=== PATIENT | male | born 1945 | race Caucasian/White ===

== ENCOUNTER → 2017-08-03 17:54 | Outpatient (CLI) | payer MEDICARE, SELFPAY ==
--- NOTE | 2017-08-03 18:03 | DI.MRI.S_ITS ---
PROCEDURE: MR FOOT RT WO/W CON INDICATIONS: RIGHT FOOT SWELLING TECHNIQUE: Noncontrast sagittal T1 spin echo and T2 fast spin echo with fat saturation, long-axis T1 spin echo and T2 fast spin echo with fat saturation; short-axis T1 spin echo, proton density fast spin echo, and T2 fast spin echo with fat saturation through the forefoot. Post-contrast short axis, long axis, and sagittal T1 spin echo with fat saturation through the forefoot. COMPARISON: None. FINDINGS: Image quality: Excellent. Bones and joints: No suspicious osseous enhancement. There is a bipartite lateral hallux sesamoid, with mild marrow edema for example image 29 series 6. There is a first MTP joint effusion. First and second tarsometatarsal degeneration. There is also mild first metatarsophalangeal joint degeneration. No intraosseous lesions. Soft tissues: Along the course of the extensor hallucis longus tendon there is a large diffuse area of T2 hyperintensity, with discrete margins and internal heterogeneous signal intensity with scattered innumerable 1-2 mm nodular T2 hypointense and T1 isointense foci. On postcontrast enhanced pulse sequences there is primarily peripheral enhancement. Exact measurements are difficult due to the irregular configuration however this measures approximately 10 cm long the course of the tendon and 2.2 x 1.4 cm in cross-sectional dimension as seen on short axis pulse sequences of the foot. This likely corresponds to the fiducial marker placed on the dorsum of the foot IMPRESSION: Large area of heterogeneous signal change and peripheral enhancement along the course of the extensor hallucis longus tendon as detailed above. 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 Please correlate clinically. Other probably less likely etiologies in the differential include complex ganglion cyst or unusual infection. Myxoid soft tissue sarcomas cannot entirely be excluded. Recommend clinical correlation and management. Bipartite lateral hallux sesamoid with marrow edema. Technically, this could represent acute sesamoid fracture versus sesamoiditis of unknown etiology. Recommend clinical correlation and exam findings. Degenerative changes as above. Dictated by: Oleg Polanco M.D. on 08/04/2017 at 9:17 Approved by: Oleg Polanco M.D. on 08/04/2017 at 9:51
== END ==
PROVIDERS: Family Provider Student in an Organized Health Care Education/Training Program; PCP Student in an Organized Health Care Education/Training Program; Visit Provider Podiatrist
DX: R22.41 Localized swelling, mass and lump, right lower limb (principal)
CPT/HCPCS: 73720; A9579

== ENCOUNTER → 2017-12-22 15:16 | Outpatient (CLI) | payer MEDICARE, SELFPAY ==
--- NOTE | 2017-12-22 | DI.CT.S_ITS ---
PROCEDURE: CT UE RT WO CON INDICATIONS: OTHER SPECIFIC ARTHROPATHIES NEC RIGHT SHOULDER TECHNIQUE: Noncontrast 1-1.5 mm thick sections acquired from the acromioclavicular joint to the inferior scapula, with coronal and sagittal reformatting. COMPARISON: None. FINDINGS: Image quality: Excellent. Bones: No fracture or focal osseous destruction. There is glenohumeral degenerative spurring and sclerosis. Severe AC joint degeneration is present. There is high riding appearance of the humeral head in keeping with chronic rotator cuff pathology. This is supported by severe atrophy of the supraspinatus muscle. There is also atrophy, and dystrophic calcification of the infraspinatus muscle. Possible small Hill-Sachs fracture. Visualized right lung unremarkable the. IMPRESSION: Mild to moderate glenohumeral degenerative joint disease. Severe AC joint degeneration. High riding appearance of the humeral head with atrophy of the supraspinatus and infraspinatus muscles in keeping with chronic rotator cuff tear. Please see shoulder MRI dated 05/10/17. Dictated by: Oleg Polanco M.D. on 12/22/2017 at 16:59 Approved by: Oleg Polanco M.D. on 12/22/2017 at 17:05
== END ==
PROVIDERS: PCP Student in an Organized Health Care Education/Training Program; Visit Provider Orthopaedic Surgery
DX: M19.011 Primary osteoarthritis, right shoulder (principal); M75.101 Unspecified rotator cuff tear or rupture of right shoulder, not specified as traumatic
CPT/HCPCS: 73200

== ENCOUNTER → 2018-01-10 13:07 | Outpatient (CLI) | payer MEDICARE, SELFPAY ==
[2018-01-10 13:46] LABS: Add Manual Diff / Slide Review NO; Basophils Percent Auto 0.6 % (0-2); Eosinophils Percent Auto 1.6 % (2-4); Hematocrit 41.4 % (41-53); Hemoglobin 13.6 g/dL (13.5-17.5); Lymphocytes Percent Auto 11.6 % (25-40); Mean Corpuscular HGB Conc 32.7 % (30-36); Mean Corpuscular Hemoglobin 31.2 PG (26-34); Mean Corpuscular Volume 95.4 fL (80-100); Monocytes Percent Auto 8.7 % (3-14); Neutrophils Absolute Auto 8800 /uL (3000-5900); Neutrophils Percent Auto 77.5 % (50-75); Platelet Count 137 X10^3/uL (150-400); Red Blood Cell Count 4.34 X10^6/uL (4.5-5.9); Red Cell Distribution Width 13.9 % (11.6-14.8); White Blood Cell Count 11.3 X10^3/uL (4.5-11.0)
[2018-01-10 14:02] LABS: INR 1.3 (0.9-1.3); Prothrombin Time 14.3 SECONDS (10.1-12.7)
[2018-01-10 14:05] LABS: PTT Partial Thromboplastin Tim 35 SECONDS (26.4-36.2)
[2018-01-10 14:15] LABS: Carbon Dioxide 29 mmol/L (22-32); Chloride 99 mmol/L (98-107); HEMOLYSIS < 15 (0-50); Potassium 3.9 mmol/L (3.4-5.1); Sodium 139 mmol/L (137-145)
== END ==
PROVIDERS: PCP Student in an Organized Health Care Education/Training Program; Visit Provider Orthopaedic Surgery
DX: R73.9 Hyperglycemia, unspecified (principal); Z01.818 Encounter for other preprocedural examination; Z51.81 Encounter for therapeutic drug level monitoring
CPT/HCPCS: 36415; 80051; 85025; 85610; 85730

== ENCOUNTER 2018-01-24 10:02 | Inpatient (IN) | payer MEDICARE, SELFPAY ==
[2018-01-17 12:42] VITALS: BMI 34.1
[2018-01-24] VITALS (11 sets, daily range): BP systolic 115–140; BP diastolic 62–88; PULSE 65–88; RESP 16–20; TEMP 36.2–36.7; O2SAT 93–96; BMI 33.7
--- NOTE | 2018-01-24 | DI.RAD.S_ITS ---
PROCEDURE: XR SHOULDER RT MIN 2V INDICATIONS: Patient is status post reverse total shoulder arthroplasty TECHNIQUE: 2 views of the shoulder were acquired. COMPARISON: [facility], , SHOULDER MINIMUM 2 VIEW LEFT, 03/16/2012, 15:18. FINDINGS: Bones: Patient is status post right shoulder reverse arthroplasty. Alignment of right shoulder is anatomic. No fractures or dislocations. Moderate right acromioclavicular joint osteophyte is is seen. No suspicious bony lesions. Visualized ribs appear intact. Soft tissues: No suspicious soft tissue calcifications. IMPRESSION: Post right shoulder reverse arthroplasty changes with anatomic right shoulder alignment. Dictated by: Timo Lowe M.D. on 01/24/2018 at 16:44 Approved by: Timo Lowe M.D. on 01/24/2018 at 16:45
[2018-01-24] MEDS: ACETAMINOPHEN 325 MG TABLET 975 MG PO ×3 (10:46→20:34)
[2018-01-24] MEDS: PREGABALIN 75 MG CAPSULE PO (10:47)
[2018-01-24] MEDS: LACTATED RINGERS 1,000 ML 42 ML IV ×2 (11:39→14:16)
[2018-01-24] MEDS: VANCOMYCIN 1,000 MG/200 ML FROZ.PIGGY 200 MG IV (11:51)
[2018-01-24] MEDS: MIDAZOLAM 2 MG/2 ML VIAL IV (12:01)
[2018-01-24] MEDS: fentaNYL 100 MCG/2 ML INJ 50 MCG IV (12:01)
--- NOTE | 2018-01-24 12:01 | PM.PREOP ---
Pre-operative Note Interval Note Pre-op Check: Yes History & Physical Reviewed by Physician Changes: No
[2018-01-24] MEDS: LIDOCAINE 1% W/EPI INJ 10 ML INJ (13:05)
--- NOTE | 2018-01-24 13:13 | SUR.OPER ---
Beach chair with Ashleyn/Jana shoulder positioner. Lower body on padded OR bed. Head in foam padded head cradle, secured with straps. Non-operative arm secured <90 degrees abduction. Pillow under knees. Safety belt at thigh. Cloth tape over blanket over lower legs, gel pad under heels.
--- NOTE | 2018-01-24 14:52 | P.OP_ITS ---
Operative Date/Time/Diagnoses Date of procedure: 01/24/18 Time of procedure: 12:43 Pre-op diagnosis: Right shoulder cuff tear arthropathy Post-op diagnosis: same Procedure & Clinicians Procedure: Right reversed total shoulder arthroplasty Same procedure as scheduled: Yes Indications: Right cuff tear arthropathy Surgeon: Guy Dodge Metal Work Duct Installer: Susanna Mayfield Anesthesia Type: General and Peripheral nerve block Operative Notes Findings: Findings of cuff tear arthropathy. Complete tear of the supraspinatus and infraspinatus. Almost complete tear of the majority of the subscapularis. High riding humeral head. Arthritic changes at the glenohumeral joint. Closure Type: primary Implants & Drains: Tornier 7b stem Standard base plate Eccentric glenosphere 6mm poly Low offset tray Applied: drain(s) and implant(s) Estimated Blood Loss (mL): 100 Blood products transfused: none Complications: none Condition: stable Disposition: PACU Plan for aftercare: Patient will follow our postoperative protocol for reverse total shoulder arthroplasty.
--- NOTE | 2018-01-24 15:20 | PT.IPTN ---
Current Diagnoses Other specific arthropathies, not elsewhere classified, right shoulder (01/24/18) Other specific arthropathies, not elsewhere classified, left shoulder (01/24/18) Surgery Performed Operation Date: 01/24/18 11:45 Actual Procedures p Total Shoulder Arthroplasty-Reverse(Right) - Guy Dodge MD Physical Therapy Treatment Note M3 PT-IP Subjective Start: 01/24/18 15:34 Freq: NEEDED Status: Active Protocol: Document 01/24/18 15:20 RS (Rec: 01/24/18 15:36 RS [id number]) Subjective Physical Therapy Visit Type Type Administrative Note Notes Received PT order, performed chart review, attempted to see patient, but pt was not yet in his assigned room. Will try again later this afternoon or tomorrow.
[2018-01-24] MEDS: LACTATED RINGERS 1,000 ML 125 ML IV (18:35)
[2018-01-24] MEDS: DOCUSATE 100 MG CAPSULE PO (20:34)
[2018-01-24] MEDS: ROSUVASTATIN 10 MG TABLET 5 MG PO (20:34)
[2018-01-24] MEDS: METFORMIN XR 500 MG TABLET PO (20:36)
[2018-01-24] MEDS: TAMSULOSIN 0.4 MG CAPSULE 0.8 MG PO (20:37)
[2018-01-24] MEDS: CARVEDILOL 3.125 MG TABLET PO (20:37)
[2018-01-25] VITALS: BP 114/62; PULSE 70; RESP 16; TEMP 36.6; O2SAT 96
[2018-01-25] MEDS: VANCOMYCIN 1,000 MG/200 ML FROZ.PIGGY 200 MG IV (00:04)
[2018-01-25 04:00] VITALS: BP 122/77; PULSE 70; RESP 16; TEMP 36.6; O2SAT 96
[2018-01-25] MEDS: OXYCODONE IR 5 MG TABLET PO ×3 (04:06→12:06)
[2018-01-25 05:21] LABS: Hemoglobin 10.6 g/dL (13.5-17.5); Mean Corpuscular HGB Conc 33.2 % (30-36); Mean Corpuscular Hemoglobin 31.8 PG (26-34); Mean Corpuscular Volume 95.6 fL (80-100); Platelet Count 125 X10^3/uL (150-400); Red Blood Cell Count 3.35 X10^6/uL (4.5-5.9); Red Cell Distribution Width 13.6 % (11.6-14.8); White Blood Cell Count 7.7 X10^3/uL (4.5-11.0)
[2018-01-25 07:00] VITALS: BP 124/59; PULSE 59; RESP 18; TEMP 37.1; O2SAT 96
[2018-01-25] MEDS: ACETAMINOPHEN 325 MG TABLET 975 MG PO ×2 (08:21→14:31)
[2018-01-25] MEDS: BENAZEPRIL 5 MG TABLET 10 MG PO (08:22)
[2018-01-25] MEDS: CHLORTHALIDONE 25 MG TABLET PO (08:22)
[2018-01-25] MEDS: METFORMIN XR 500 MG TABLET PO ×2 (08:22→14:29)
[2018-01-25 08:25] VITALS: BP 146/62; PULSE 91
[2018-01-25] MEDS: CARVEDILOL 3.125 MG TABLET PO (08:25)
--- NOTE | 2018-01-25 10:06 | P.DS_ITS ---
History of Present Illness Date Patient Seen: 01/25/18 Time Patient Seen: 10:06 Chief complaint: reconstruct shoulder joint 37542 Narrative: Right cuff tear arthropathy Discharge Providers Date of admission: 01/24/18 10:02 Primary care physician: Chava Rodriguez MD Consults: 01/24/18 10:34 Consult to Respiratory Therapy Evaluate & Treat Comment: Physician Instructions: Evaluate and treat 01/24/18 14:40 Consult to Discharge Planning Routine Comment: Consult to Physical Therapy Evaluate & Treat Comment: Physician Instructions: Evaluate and Treat Consult to Respiratory Therapy Evaluate & Treat Comment: patient status post reverse total shoulder arthro Physician Instructions: Evaluate and treat 01/25/18 09:53 Consult to Occupational Therapy Evaluate & Treat Comment: Physician Instructions: Evaluate and treat Discharge provider: Yoanna Reaves PA-C Discharge Date: 01/25/18 Summary Discharge Diagnosis: s/p right reverse total shoulder arthroplasty Hospital Course: Guy was admitted for right reverse total shoulder arthroplasty with Dr. Dodge, and he consented to procedure. Hospital course was unremarkable. On postop day 1. Patient was feeling well and ready to go home. His pain was well controlled. He had worked with OT and PT prior to discharge. Patient is wearing sling. He has no difficulty eating or voiding. Patient will restart Eliquis tomorrow. Hemovac drain pulled prior to discharge. Exam Vital Signs (past 8 hours): - 01/25/18 04:00 01/25/18 07:00 01/25/18 08:25 Temperature 97.8 F 98.8 F Pulse Rate 70 59 L 91 H Respiratory Rate 16 18 Blood Pressure 122/77 124/59 L 146/62 H Pulse Oximetry 96 96 Oxygen Delivery Method Room Air Oxygen Flow Rate 0 Narrative Exam Narrative: Patient is sitting up in bed in no acute distress. He is alert and oriented x3. Dressing on right shoulder CDI. Hemovac drain placed. Rehabilitation Services Director strength strong and equal. Sensation intact light touch throughout bilateral lower extremities. Patient's pain is well controlled with oxycodone. Denies any muscle spasms. Patient has a recliner at home that he plans a sleep in. Objective Labs Result Diagrams: 01/25/18 04:43 Labs: Laboratory Results - last 24 hr 01/24/18 01/25/18 16:10 04:43 WBC 7.7 RBC 3.35 L Hgb 10.6 L Hct 32.0 L MCV 95.6 MCH 31.8 MCHC 33.2 RDW 13.6 Plt Count 125 L Nasal Screen MRSA (PCR) Negative for mrsa Discharge Plan Discharge Plan Patient Disposition: Home Discharge comment: DC home this afternoon Discharge Med Rec/Prescriptions Prescriptions: New oxycodone 5 mg Tablet 5 mg PO Q4HR Qty: 60 RF: 0 Continue benazepril 10 mg Tablet 10 mg PO QAM Qty: 0 RF: 0 metformin [Glucophage XR] 500 MG tablet extended release 24 hr 500 mg PO TID Qty: 0 RF: 0 chlorthalidone 25 mg Tablet 25 mg PO DAILY RF: 0 acetaminophen 500 mg Tablet 1,000 mg PO Q6H PRN (Reason: pain) RF: 0 carvedilol 3.125 mg Tablet 3.125 mg PO BID RF: 0 rosuvastatin 5 mg Tablet 5 mg PO SEEINSTR RF: 0 torsemide 10 mg Tablet 10 mg PO SEEINSTR RF: 0 potassium chloride 10 mEq Tablet Extended Release 30 meq PO SEEINSTR RF: 0 rosuvastatin 5 mg tablet See Label Instructions .ROUTE .COMPLEX RF: 0 apixaban [Eliquis] 5 mg Tablet 5 mg PO BID Qty: 0 RF: 0 tamsulosin 0.4 mg capsule 0.8 mg PO BEDTIME RF: 0 Follow up/Referrals: Guy Dodge MD [Physician] - (Please see PA 10-14 days after surgery) Provider Discharge Instructions Activity: Reverse TSA protocol Cold/Heat Therapy: as needed Skin/Wound/Dressing Care Report to your healthcare provider any signs of infection, such as:: chills, fever and increased pain Dressing: Leave in place until appointment Visit Report/Discharge Packet Instructions: DI for Shoulder Replacement Discharge Data Primary Care Provider: Chava Rodriguez Attending Provider: Guy Dodge Admit Date/Time: 01/24/18 10:02
--- NOTE | 2018-01-25 11:50 | OT.IP.EVAL ---
Current Diagnoses Other specific arthropathies, not elsewhere classified, right shoulder (01/24/18) Other specific arthropathies, not elsewhere classified, left shoulder (01/24/18) Surgery Performed Operation Date: 01/24/18 11:45 Actual Procedures p Total Shoulder Arthroplasty-Reverse(Right) - Guy Dodge MD Past Medical History (Last Reviewed 01/25/18 @ 08:16 by Omid Barron) Afib (Acute) CHF (congestive heart failure) (Acute) Diabetes (Acute) Easy bruisability (Acute) Edema (Acute) Enlarged prostate (Acute) HTN (hypertension) (Acute) VISH on CPAP (Acute) Pneumonia (Acute ~2007) Surgical History (Last Reviewed 01/25/18 @ 08:16 by Omid Barron) H/O vasectomy (Acute ~1986) History of left-sided carotid endarterectomy (Acute ~2006) History of nasal surgery (Acute ~1984) Hx of arthroscopy of right knee (Acute) Hx of cholecystectomy (Acute ~2002) Hx of colonoscopy (Acute) Hx of eye surgery (Acute) Hx of hernia repair (Acute) Hx of tonsillectomy (Acute) S/P foot surgery, right (Acute 12/23/17) Occupational Therapy Inpatient Evaluation/Re-Eval M1 PT/OT-IP Prior Functional Status Start: 01/24/18 15:34 Freq: NEEDED Status: Active Protocol: Document 01/25/18 11:50 PJM (Rec: 01/25/18 15:10 PJM [id number]) Medical Review Prior Functional Status Medical History Reviewed Yes Diet/Fluid Consistency Regular Communication No deficits noted. Mobility and Gait Previously independent with all mobilities using no AD. Activities of Daily Living and IADL's Pt independent with all self care, but limited by B shoulder and B knee pain. Prior Functional Level (Other details) Supportive can provide 24 hr assist at d/c. Social History Household Members spouse Living Arrangements House Number of Floors (Floors) Two Floors Number of Stairs To Enter/Railing? Pt has options for entrance: 2 steps no rail to enter through garage OR 8-9 steps B rails through front door. Inside home, 13 steps L rail to access top floor. Home Environment High Toilet Walk in Shower Home Equipment Straight Cane Hand Held Shower Fleet Service Manager Grab Bars Near Toilet Grab Bars In Shower Employment Status Retired Additional Social History Comment Pt lives with Edwin who is available for 14/09 assist as needed. 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 Owns electric recliner, has been sleeping in that recently . will obtain shower seat and long shoe horn for pt. M2 OT-IP Current Condition Start: 01/25/18 14:44 Freq: Status: Active Protocol: Document 01/25/18 11:50 PJM (Rec: 01/25/18 15:10 PJM [id number]) Occupational Therapy Current Condition Current Condition Evaluation Date 01/25/18 Treatment Diagnosis decreased self care s/p R reverse total shoulder Post Operative Precautions Shoulder Precautions Sling No Abduction Other Precautions AROM exercises to elbow, forearm, wrist and fingers okay. No pendulums for 2 weeks. No active abduction. Sling on all times except showering, dressing x 6 weeks. Weight Bearing Status Weight Bearing Status Non-Weight Bearing Allowed Weight Bearing Amount (enter % NWB R shoulder or #) (%) M3 OT- IP Subjective and Pain Start: 01/25/18 14:44 Freq: Status: Active Protocol: Document 01/25/18 11:50 PJM (Rec: 01/25/18 15:10 PJM [id number]) OT- Subjective Occupational Therapy Visit Type Type Initial Evaluation Visit Start Time 10:49 Visit Stop Time 11:50 Notes Pt's her for education this session. Pt c/o feeling light headed near end of session and BP found to be 82/ 50 in sitting. Reclined pt with BP improving to 89/47 and fully reclined BP 100/54 after 15 minutes. RN aware and in room to check on pt. Pt reports he has been hypotensive after previous surgeries. Occupational Therapy Visit Comments Patient/Caregiver Goals to go home today and eventually get L shoulder replaced and B knees replaced OT Pain Assessment Pain When Pain Assessed At Rest Pain Present Pain Present Pain Reported Location Right Shoulder Intensity 4 Scale Used Numeric (1 - 10) Description Aching Acute Pain Behaviors Facial Grimacing Guarding Management Techniques Distraction Re-positioning Timing of Activity with Medications M4 OT- IP ADL's Start: 01/25/18 14:44 Freq: Status: Active Protocol: Document 01/25/18 11:50 PJM (Rec: 01/25/18 15:10 PJM [id number]) OT TKS-[id number]-[id number] General Evaluation Self-Feeding Ability Independent Areas Needing Assistance Cutting Food Opening Containers Comments OT Self-Feeding Comments Pt needs set up of meal tray due to unilateral function. Pt feeding self with non dominant R hand. OT ADL-Grooming General Evaluation Grooming Ability Standby Assistance Areas Needing Assistance Retrieving/Set-up of Grooming Items Comments OT Grooming Comments Educated pt he can use R hand as light assist for stabilizing objects with sling in place. OT ADL-Oral Care General Eval Oral Care Ability Standby Assistance Areas of Assistance Retrieving/Set-Up of Items OT ADL-Dressing General Eval Upper Body Dressing Ability Maximum Assistance Lower Body Dressing Ability Moderate Assistance Areas Needing Assistance Managing Buttons Button-Up Shirt/Blouse Pants/Shorts Socks Shoes Assistive Devices Dressing Assistive Devices Long Handled Shoe Horn Fleet Service Manager Comments OT Dressing Comments Educated pt / re: safe technique for donning and doffing sling and front button shirt. Pt has limited AROM in L shoulder too and needs to put B arms into sleeves and then flip shirt over head. able to assist pt appropriately with sling and shirt. Provided education re: unilateral lower body dressing techniques and to assist PRN at home. OT ADL-Toileting General Evaluation Toileting Ability Standby Assistance Comments OT Toileting Comments Pt SBA to use urinal with assist for clothing management up/down over R hip. Pt states he can wipe with L hand after BM, and has been doing this at home prior to surgery. OT ADL-Bathing Bathing Type Bathing Type Shower General Evaluation Bathing Ability Moderate Assistance Areas Needing Assistance Retrieving/Setting Up Items Wash/Dry Upper Body Wash/Dry Back Wash/Dry Lower Extremities Devices Bathing Equipment Hand Held Shower Sprayer Shower Chair without Arms Comments OT Bathing Comments plans to get shower chair for pt. Provided education re : safe showering technique and verbalizes understanding of pt's need for assist due to current R should precautions. M5 OT- IP IADL's Start: 01/25/18 14:44 Freq: Status: Active Protocol: Document 01/25/18 11:50 PJM (Rec: 01/25/18 15:10 PJM [email or web address]) OT-Instrumental Activities of Daily Living Deficits IADL Deficits Identified Deficits Home Safety Awareness Awareness of Need for Assistance at Home Good Awareness Ability to Problem Solve Emergency Able to Problem Solve Situations Medication Management Medication Management No Deficits Identified Meal Preparation Meal Preparation Caregiver Provides Assist Meal Preparation Comments to assist PRN Faa Certified Powerplant Mechanic Faa Certified Powerplant Mechanic Caregiver Provides Assist Faa Certified Powerplant Mechanic Comments to assist PRN Driving Driving Caregiver Provides Assist Driving Comments to assist PRN M6 OT- IP Functional Cognition Start: 01/25/18 14:44 Freq: Status: Active Protocol: Document 01/25/18 11:50 PJM (Rec: 01/25/18 15:10 PJM [id number]) Cognitive Factors Limiting Selfcare Function Cognitive Ability Level of Alertness Drowsy Patient Orientation Name Age Birthday Month Date Year Day of Week Place Situation Attention Span Ability Capable of Focused Attention Capable of Sustained Attention Ability to Follow Commands Able to Follow One Step Commands Memory Description No Deficits Noted Safety Awareness Decreased Ability to Apply Precautions Problem Solving Ability Needs Assist to Identify Solutions Cognitive Comments Cognitive Assessment Comments Pt mildly drowsy from pain meds but participating appropriately with ADL training. OT- Vision and Hearing OT- Hearing Assessment OT- Hearing Assessment WFL OT- Vision Assessment Visual Acuity Glasses All The Time Vision Assessment Comments Pt denies any recent vision changes. M7 OT- IP Mobility and Balance Start: 01/25/18 14:44 Freq: Status: Active Protocol: Document 01/25/18 11:50 PJM (Rec: 01/25/18 15:10 PJM [email or web address]) OT-Transfer Assessment Sit to and From Stand Sit to and from Stand Standby Assistance Transfers Transfer Ability Standby Assistance Technique Transfer Destination Car Chair Transfer Technique Stand Step Pivot Devices Transfer Assistive Devices Gait Belt Straight Cane Orthotic/Prosthetic Devices or Brace: Yes Comments Mobility Comments Pt has RUE sling in place OT- Gait Assessment Comments Gait Ability Comments see P.T. notes OT- Balance Assessment Sitting Balance and Reactions Static Sitting Balance Ability Good Dynamic Sitting Balance Ability Fair Standing Balance and Reactions Static Standing Balance Ability Good Dynamic Standing Balance Ability Fair Comments Other Balance Tests/Deviations/Treatment see P.T. notes : M8 OT- IP Objective Assessments Start: 01/25/18 14:44 Freq: Status: Active Protocol: Document 01/25/18 11:50 PJM (Rec: 01/25/18 15:10 PJM [id number]) OT Gross Range of Motion Upper Extremity Range of Motion Assessment Right Impaired ROM Impairments RUE: AROM WFL in elbow, forearm, wrist, fingers with sling off. Pt educated re: AROM exercises for these joints when sling off. Shoulder NT as per post op protocol. LUE: shoulder IR/ER limited to about 50% by pain and stiffness. Distal AROM WFL. OT Strength Upper Extremity Strength Assessment Right Impaired Hand Eligibility Specialist Strength Hand Dominance Right Comments Strength Comments RUE strength NT due to recent surgery except steam shovel engineer 3+/5 limited by shoudler pain and edema in fingers. OT- Coordination Assessment Upper Extremity Finger to Nose Test Right UE Impaired Finger Tapping Test Right UE Impaired Comments Coordination Comments Pt able to use R hand as as light assist within sling with verbal cues. OT-Muscle Tone Assessment Muscle Tone WNL Yes OT Sensation Assessment Comments Summary Comments BUE WNL by pt report. Edema Edema Present Edema Comments Min + edema in R fingers. Pt educated re: fist pumping to decrease edema. M9 OT- IP Assessment and Plan Start: 01/25/18 14:44 Freq: Status: Active Protocol: Document 01/25/18 11:50 PJM (Rec: 01/25/18 15:10 PJM [email or web address]) OT Summary Assessment and Plan Potential Rehabilitation Potential Good Analytic Complexity at Evaluation Low Summary OT Impairments Pain Balance Coordination Dressing Toileting Bathing Toilet Transfers Shower Transfers Progress Towards Goals Goals Met Assessment Summary Low complexity OT assessment completed with emphasis on self care skills within R reverse total shoulder precautions. Provided education to pt/ re: precautions, AROM exercises for R elbow/forearm/wrist/ fingers as per MD orders, upper and lower body dressing techniques including donning and doffing sling, safe bathing techniques, toileting, and car transfers. Pt/ verbalize and demonstrate understanding of all education. Pt's activity tolerance limited near end of session by orthostasis with RN aware and in room to check on pt. All OT education completed today and pt plans to d/c home later today with 24 hr assist from supportive if BP stabilizes. No further OT services needed. Frequency of Treatment Frequency Of Treatment Discharge Discharge Recommendations OT Discharge Recommendations Home with 24/7 Assist Home Equipment Needs to obtain long shoe horn for pt
[2018-01-25 12:10] VITALS: BP 100/54; PULSE 60; RESP 18; O2SAT 98
--- NOTE | 2018-01-25 13:56 | PT.IIE ---
Current Diagnoses Other specific arthropathies, not elsewhere classified, right shoulder (01/24/18) Other specific arthropathies, not elsewhere classified, left shoulder (01/24/18) Surgery Performed Operation Date: 01/24/18 11:45 Actual Procedures p Total Shoulder Arthroplasty-Reverse(Right) - Guy Dodge MD Surgical History (Last Reviewed 01/25/18 @ 08:16 by Omid Barron) H/O vasectomy (Acute ~1986) History of left-sided carotid endarterectomy (Acute ~2006) History of nasal surgery (Acute ~1984) Hx of arthroscopy of right knee (Acute) Hx of cholecystectomy (Acute ~2002) Hx of colonoscopy (Acute) Hx of eye surgery (Acute) Hx of hernia repair (Acute) Hx of tonsillectomy (Acute) S/P foot surgery, right (Acute 12/23/17) Medical History (Last Reviewed 01/25/18 @ 08:16 by Omid Barron) Afib (Acute) CHF (congestive heart failure) (Acute) Diabetes (Acute) Easy bruisability (Acute) Edema (Acute) Enlarged prostate (Acute) HTN (hypertension) (Acute) VISH on CPAP (Acute) Pneumonia (Acute ~2007) Physical Therapy Inpatient Evaluation/Re-Eval M1 PT/OT-IP Prior Functional Status Start: 01/24/18 15:34 Freq: NEEDED Status: Active Protocol: Document 01/25/18 09:46 (Rec: 01/25/18 12:17 [email or web address]) Medical Review Prior Functional Status Medical History Reviewed Yes Communication No deficits noted. Mobility and Gait Previously independent with all mobilities using no AD. Social History Household Members spouse Living Arrangements House Number of Floors (Floors) Two Floors Number of Stairs To Enter/Railing? Pt has options for entrance: 2 steps no rail to enter through garage OR 8-9 steps B rails through front door. Inside home, 13 steps L rail to access top floor. Home Environment High Toilet Walk in Shower Home Equipment Grab Bars Near Toilet Grab Bars In Shower Employment Status Retired Additional Social History Comment Pt lives with Edwin who is avaliable for 24/7 assist as needed. 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 Owns electric recliner, has been sleeping in that recently . M2 PT-IP Current Condition Start: 01/24/18 15:34 Freq: NEEDED Status: Active Protocol: Document 01/25/18 09:46 (Rec: 01/25/18 12:17 [email or web address]) Physical Therapy Current Condition Current Condition Evaluation Date 01/25/18 Treatment Diagnosis R reverse total shoulder; difficutly walking Onset Date 01/24/18 Precautions Shoulder Precautions Sling PROM Internal Rotation to Body No External Rotation Brace soft sling Other Precautions No exension with axial load. No end range IR with adduction Weight Bearing Status Weight Bearing Status Non-Weight Bearing Allowed Weight Bearing Amount (enter % NWB R shoulder or #) (%) M3 PT-IP Subjective Start: 01/24/18 15:34 Freq: NEEDED Status: Active Protocol: Document 01/25/18 09:46 (Rec: 01/25/18 12:17 [email or web address]) Subjective Physical Therapy Visit Type Type Initial Evaluation Visit Start Time 09:46 Visit Stop Time 10:50 Total Visit Minutes 64 Number of LARD RENDERER Visits 0 Physical Therapy Visit Comments Patient Comments Pt agreeable to mobilize with PT. Therapy Pain Assessment Pain When Pain Assessed During Mobility Pain Present Pain Present Pain Reported Location Right Shoulder Scale Used Not rated. States pain is low Pain Management Techniques Modification of Treatment Re-positioning Timing of Activity with Medications M4 PT-IP Mobility and Gait Start: 01/24/18 15:34 Freq: NEEDED Status: Active Protocol: Document 01/25/18 09:46 (Rec: 01/25/18 12:17 [email or web address]) PT-Bed Mobility Assessment Supine to Sit Supine to Sit Standby Assistance Head of Bed Elevated Scooting Scooting to Edge of Bed Standby Assistance Scooting Up and Down in Bed Standby Assistance PT-Transfer Assessment Sit to and From Stand Sit to and from Stand Standby Assistance Equipment Transfer Assistive Device None Gait Belt Straight Cane Orthotic/Prosthetic Devices or Brace: Yes Transfers Transfer Destination Chair Transfer Technique Ambulates between surfaces Comments Mobility Comments Resting/supine HOB elevated VSS WNL. Supine > sit completed with HOB elevated SBA. Sit <> stand using no AD is SBA. Pt denies symptoms of dizziness or nausea and agreeable to mobilize. Gait Assessment Gait Gait Assistance Required: Standby Assistance Distance (Feet) 300 Able to Maintain Weight Bearing Status No During Gait Assistive Devices Assistive Device None Gait Belt Straight Cane Orthotic/Prosthetic Devices or Brace: Yes Gait Deviations General Gait Pattern Decreased Stride Length Decreased Feet Clearance Factors Limiting Gait Function Factors Limiting Gait Function Decreased Activity Tolerance Decreased Strength Limited Range of Motion Pain Poor Balance Comments Gait Comments Pt ambulates 300 ft. with no AD to/from stairs SBA. Gait is notable for Antalgic gait over the R side and decreased stride length and foot clearance. Ambulation 50 ft. with spc is SBA and pt gait mechanics improve significantly, however pt needing frequent cues for appropriate 3 pt gait pattern. Stair Climbing Assessment Evaluation Level of Assist On Stairs Contact Guard Assistance Devices Stair Climbing Assistive Devices Left Railing Technique/Endurance Stair Climbing Direction Ascend and Descend Stair Climbing Technique Step Over Step Number of Steps Climbed 12 Query Text: Stair Climbing Set # Repetitions (reps) 1 Comments Stair Climbing Comments Pt up/down 12 steps using L rail is CGA. Pt uses side step approach to descend. No LOB noted and pt denies nausea and dizziness during entire session. VSS WNL seated post session. PT-Balance Assessment Sitting Balance and Reactions Static Sitting Balance Ability Good Dynamic Sitting Balance Ability Good Standing Balance and Reactions Static Standing Balance Ability Good Dynamic Standing Balance Ability Fair Device Used spc M5 PT-IP Objective Assessments Start: 01/24/18 15:34 Freq: NEEDED Status: Active Protocol: Document 01/25/18 09:46 (Rec: 01/25/18 12:17 [email or web address]) Orientation Orientation/Cognition Level of Alertness Alert Orientation Name Age Birthday Month Date Year Day of Week Place Situation Language Function Ability No Deficits Noted Safety Awareness Decreased Safety Awareness Gross Range of Motion Upper Extremity ROM Assessment Right Impaired Lower Extremity ROM Assessment Within Functional Limits Strength Lower Extremity Strength Assessment Within Functional Limits Other Assessments Other Other Assessments Pitting edema noted in BLE. R grade 2+; L 1+ Girth measurements: Proximal to lateral maleolus: L 27.5cm; R 31.5cm Mid calf: L 31.5; 42 cm M6 PT-IP Treatment Start: 01/24/18 15:34 Freq: NEEDED Status: Active Protocol: Document 01/25/18 09:46 (Rec: 01/25/18 12:17 [email or web address]) Physical Therapy Treatment Exercises Exercises Ankle Pumps Education Education Provided Precautions Safety M7 PT-IP Assessment and Plan Start: 01/24/18 15:34 Freq: NEEDED Status: Active Protocol: Document 01/25/18 09:46 (Rec: 01/25/18 12:17 [email or web address]) PT Summary Assessment and Plan Potential Rehabilitation Potential Good Status of Condition at Evaluation Stable Summary Impairments Pain ROM Strength Balance Bed Mobility Transfers Gait Activity Tolerance Assessment Summary Pt s/p R reverse total shoulder with difficulty walking. Pt ambulates community distances SBA and completed up/down 12 steps L rail CGA. Caregiver training needs to be completed, then when pt is medically ready, recommend d/c to home with assist. Also recommended pt use spc for improved stability during walking; pt agreed. Goals Bed Mobility Goal Independent Transfer Goal Independent Cane Gait Goal Independent Cane Gait Distance 300 Other Goals 300 ft ambulation independent. Safely demonstrate up/down 13 steps with caregiver demonstrating safe CGA. Days to Meet Goals 2 Frequency of Treatment Frequency Of Treatment Twice a Day Treatment Plan Physical Therapy Treatment Plan Bed Mobility Training Transfer Training Gait Training Therapeutic Exercise Balance Retraining Post Op Education Discharge Planning Hot or Cold Pack Neuromuscular Re-ed Coordination Retraining Manual Therapy Other Recommendations and Next Treatment Ambulation, stair climbing, Focus caregiver training. Recommendations To Nursing Amount of Assist Needed Standby Assistance Discharge Recommendations PT Discharge Recommendations Home with Assistance Equipment Needed for Home Before Pt was recommended to purchase Discharge shower chair; pt and caregiver agreed.
--- NOTE | 2018-01-25 14:55 | PT.IPTN ---
Addendum entered and electronically signed by Rosario Roth PT 01/31/18 07:26: I certify I directly supervised and guided this session. R Marilou Roth, DPAnna Original Note: Current Diagnoses Other specific arthropathies, not elsewhere classified, right shoulder (01/24/18) Other specific arthropathies, not elsewhere classified, left shoulder (01/24/18) Surgery Performed Operation Date: 01/24/18 11:45 Actual Procedures p Total Shoulder Arthroplasty-Reverse(Right) - Guy Dodge MD Physical Therapy Treatment Note M2 PT-IP Current Condition Start: 01/24/18 15:34 Freq: NEEDED Status: Active Protocol: Document 01/25/18 09:46 (Rec: 01/25/18 12:17 [email or web address]) Physical Therapy Current Condition Current Condition Evaluation Date 01/25/18 Treatment Diagnosis R reverse total shoulder; difficutly walking Onset Date 01/24/18 Precautions Shoulder Precautions Sling PROM Internal Rotation to Body No External Rotation Brace soft sling Other Precautions No exension with axial load. No end range IR with adduction Weight Bearing Status Weight Bearing Status Non-Weight Bearing Allowed Weight Bearing Amount (enter % NWB R shoulder or #) (%) M3 PT-IP Subjective Start: 01/24/18 15:34 Freq: NEEDED Status: Active Protocol: Document 01/25/18 14:55 (Rec: 01/25/18 15:39 [email or web address]) Subjective Physical Therapy Visit Type Type Treatment Note Visit Start Time 14:55 Visit Stop Time 15:20 Total Visit Minutes 25 Number of FUR FINISHER SEAMSTRESS Visits 0 Physical Therapy Visit Comments Patient Comments Pt agreeable to mobilize with PT. present and agreeable to caregiver training. Patient Goals d/c home with Therapy Pain Assessment Pain When Pain Assessed During Mobility Pain Present Pain Present Pain Reported Location Right Shoulder Scale Used 2-3/10 Pain Management Techniques Modification of Treatment Re-positioning Timing of Activity with Medications M4 PT-IP Mobility and Gait Start: 01/24/18 15:34 Freq: NEEDED Status: Active Protocol: Document 01/25/18 14:55 (Rec: 01/25/18 15:39 [email or web address]) PT-Bed Mobility Assessment Scooting Scooting to Edge of Bed Standby Assistance PT-Transfer Assessment Sit to and From Stand Sit to and from Stand Standby Assistance Equipment Transfer Assistive Device Gait Belt Straight Cane Orthotic/Prosthetic Devices or Brace: Yes Transfers Transfer Destination Chair Transfer Technique Ambulates between surfaces Comments Mobility Comments Sit <> stand with spc is SBA. Pt moves easily, not relying on UE assist to stand. Gait Assessment Gait Gait Assistance Required: Standby Assistance Distance (Feet) 300 Able to Maintain Weight Bearing Status Yes During Gait Assistive Devices Assistive Device Gait Belt Straight Cane Orthotic/Prosthetic Devices or Brace: Yes Gait Deviations General Gait Pattern Antalgic Factors Limiting Gait Function Factors Limiting Gait Function Decreased Activity Tolerance Decreased Strength Limited Range of Motion Pain Poor Balance Poor Safety Awareness Comments Gait Comments Pt ambulates 300 ft. to/from stairs with spc; min cues for appropriate 3 pt gait pattern. Stair Climbing Assessment Evaluation Level of Assist On Stairs Contact Guard Assistance Devices Stair Climbing Assistive Devices Left Railing Technique/Endurance Stair Climbing Direction Ascend and Descend Stair Climbing Technique Step to Step Number of Steps Climbed 12 Query Text: Stair Climbing Set # Repetitions (reps) 1 Comments Stair Climbing Comments Pt up/down stairs CGA provided by (PT standby for safety). and pt demonstrate safety with min cues. PT-Balance Assessment Sitting Balance and Reactions Static Sitting Balance Ability Good Dynamic Sitting Balance Ability Good Standing Balance and Reactions Static Standing Balance Ability Good Dynamic Standing Balance Ability Fair Device Used spc M5 PT-IP Objective Assessments Start: 01/24/18 15:34 Freq: NEEDED Status: Active Protocol: Document 01/25/18 09:46 (Rec: 01/25/18 12:17 [email or web address]) Orientation Orientation/Cognition Level of Alertness Alert Orientation Name Age Birthday Month Date Year Day of Week Place Situation Language Function Ability No Deficits Noted Safety Awareness Decreased Safety Awareness Gross Range of Motion Upper Extremity ROM Assessment Right Impaired Lower Extremity ROM Assessment Within Functional Limits Strength Lower Extremity Strength Assessment Within Functional Limits Other Assessments Other Other Assessments Pitting edema noted in BLE. R grade 2+; L 1+ Girth measurements: Proximal to lateral maleolus: L 27.5cm; R 31.5cm Mid calf: L 31.5; 42 cm M6 PT-IP Treatment Start: 01/24/18 15:34 Freq: NEEDED Status: Active Protocol: Document 01/25/18 14:55 (Rec: 01/25/18 15:41 [email or web address]) Physical Therapy Treatment Other Treatments Other Treatment Performed Caregiver training included gait belt donning/doffing, appropriate guarding during ambulation and stairs. Pt and caregiver able to safely demonstrate all of the above with min cues and stated feeling comfortable with performance. M7 PT-IP Assessment and Plan Start: 01/24/18 15:34 Freq: NEEDED Status: Active Protocol: Document 01/25/18 14:55 (Rec: 01/25/18 15:39 [email or web address]) PT Summary Assessment and Plan Potential Rehabilitation Potential Good Summary Impairments Pain ROM Strength Balance Bed Mobility Transfers Gait Activity Tolerance Progress Towards Goals Progressing Toward Goals Assessment Summary Caregiver training completed. Pt and caregiver demonstrated safety with all topics including safety up/down 12 steps L rail, caregiver providing CGA. Recommend d/c to home with assist when pt is medically ready. Goals Bed Mobility Goal Independent Transfer Goal Independent Cane Gait Goal Independent Cane Gait Distance 300 Days to Meet Goals 2 Frequency of Treatment Frequency Of Treatment Twice a Day Treatment Plan Physical Therapy Treatment Plan Bed Mobility Training Transfer Training Gait Training Therapeutic Exercise Balance Retraining Post Op Education Discharge Planning Hot or Cold Pack Neuromuscular Re-ed Coordination Retraining Manual Therapy Recommendations To Nursing Amount of Assist Needed Standby Assistance Discharge Recommendations PT Discharge Recommendations Home with Assistance
== END 2018-01-25 15:54 | disposition home or self-care (01) | DRG 483 ==
LOC: AC 10:25 → ICU 12:55
PROVIDERS: Admitting Provider Orthopaedic Surgery; PCP Student in an Organized Health Care Education/Training Program; Visit Provider Orthopaedic Surgery
PROC: 0RQJ0ZZ Repair Right Shoulder Joint, Open Approach (ICD-10-PCS; CPT 23472; principal; 2018-01-24 11:45)
DX: M75.121 Complete rotator cuff tear or rupture of right shoulder, not specified as traumatic (principal); I48.1 Persistent atrial fibrillation; I50.42 Chronic combined systolic (congestive) and diastolic (congestive) heart failure; I42.8 Other cardiomyopathies; M19.011 Primary osteoarthritis, right shoulder; M25.711 Osteophyte, right shoulder; I25.10 Atherosclerotic heart disease of native coronary artery without angina pectoris; Z79.84 Long term (current) use of oral hypoglycemic drugs; E11.9 Type 2 diabetes mellitus without complications; G47.33 Obstructive sleep apnea (adult) (pediatric); E78.5 Hyperlipidemia, unspecified
CPT/HCPCS: 36415; 64450; 73030; 82962; 85027; 87797; 97116; 97161; 97165; 97530; 97533; C1776; J0330; J1100; J2250; J2405; J2704; J3010; J3370

== ENCOUNTER → 2018-08-08 15:24 | Outpatient (CLI) | payer MEDICARE, SELFPAY ==
[2018-06-22 15:24] VITALS: BMI 33.7
[2018-08-08 16:12] LABS: Add Manual Diff / Slide Review NO; Basophils Absolute Auto 100 /uL (0-100); Basophils Percent Auto 0.9 % (0-2); Eosinophils Absolute Auto 200 /uL (0-450); Eosinophils Percent Auto 2.2 % (2-4); Hematocrit 39.2 % (41-53); Hemoglobin 13.3 g/dL (13.5-17.5); Lymphocytes Absolute Auto 1500 /uL (1100-4500); Lymphocytes Percent Auto 17.3 % (25-40); Mean Corpuscular HGB Conc 33.9 % (30-36); Mean Corpuscular Hemoglobin 32.9 PG (26-34); Mean Corpuscular Volume 97.2 fL (80-100); Monocytes Absolute Auto 1000 /uL (0-900); Monocytes Percent Auto 11.7 % (3-14); Neutrophils Absolute Auto 5800 /uL (1500-7000); Neutrophils Percent Auto 67.9 % (50-75); Platelet Count 218 X10^3/uL (150-400); Red Blood Cell Count 4.03 X10^6/uL (4.5-5.9); White Blood Cell Count 8.5 X10^3/uL (4.5-11.0)
[2018-08-08 16:15] LABS: Hemoglobin A1C% w Est Avg Glu 5.7 % (4.0-6.0)
[2018-08-08 17:02] LABS: Carbon Dioxide 30 mmol/L (22-32); Chloride 102 mmol/L (98-107); HEMOLYSIS < 15 (0-50); Potassium 4.3 mmol/L (3.4-5.1); Sodium 141 mmol/L (137-145)
== END ==
PROVIDERS: Family Provider Student in an Organized Health Care Education/Training Program; PCP Student in an Organized Health Care Education/Training Program; Visit Provider Orthopaedic Surgery
DX: R73.09 Other abnormal glucose (principal); Z01.812 Encounter for preprocedural laboratory examination; Z01.818 Encounter for other preprocedural examination
CPT/HCPCS: 36415; 80051; 83036; 85025

== ENCOUNTER → 2018-09-02 14:47 | Outpatient (CLI) | payer MEDICARE, SELFPAY ==
[2018-06-22 15:24] VITALS: BMI 33.7
== END ==
PROVIDERS: Family Provider Student in an Organized Health Care Education/Training Program; PCP Student in an Organized Health Care Education/Training Program; Visit Provider Orthopaedic Surgery
DX: Z01.818 Encounter for other preprocedural examination (principal); R73.09 Other abnormal glucose
CPT/HCPCS: 93005

== ENCOUNTER → 2018-09-14 13:13 | Outpatient (CLI) | payer MEDICARE, SELFPAY ==
[2018-06-22 15:24] VITALS: BMI 33.7
--- NOTE | 2018-09-14 | DI.MRI.S_ITS ---
PROCEDURE: MR PELIS WO/W CON INDICATIONS: Malignant neoplasm of prostate TECHNIQUE: Coronal HASTE, axial T1 FSE with fat saturation, 3-plane nonbreath-hold T2 FSE. After the administration of contrast, dynamic axial, delayed axial and coronal VIBE or 2-D FLASH with fat saturation through the pelvis. Optional diffusion weighted imaging and ADC may be performed. COMPARISON: None. FINDINGS: Image quality: There is magnetic susceptibly artifact from gas distention of the rectum. Prostate: Gland size is 5.3 x 4.1 x 4.1 cm; ellipsoid gland volume is 46 mL. There is heterogeneous enlargement of the transition zone compatible with BPH. There is T1 hyperintensity within the left peripheral zone posteriorly consistent with blood products from recent biopsy. Lesion size(s): Lesion 1: 1.0 x 0.9 x 1.0 cm. Lesion 2: 1.3 x 1.0 cm in transverse dimension. The lesion is indistinct in the craniocaudal dimension. Lesion location(s) (sector): Lesion 1: Right posterior transition zone in the mid to apical prostate. Lesion 2: Left anterior transition zone in the mid gland. Lesion description: Lesion 1: Oval with indistinct margins. Lesion 2: Oval indistinct margins. T2 weighted imaging (T2WI) morphology score: Lesion 1: 4 Lesion 2: 4 Diffusion weighted imaging (DWI) morphology score: Lesion 1: 3 Lesion 2: 3 Dynamic contrast enhancement (DCE): Lesion 1: Absent. Lesion 2: Present. Lesion PI-RADS score: Lesion 1: PI-RADS 4 Lesion 2: PI-RADS 4 Genitourinary system: Bladder wall is mildly thickened with trabeculation suggestive of mild chronic bladder outlet obstruction. Distal ureters are non distended. Bowel and peritoneum: No pathologic free pelvic fluid. Inferior colon and small bowel loops are normal in caliber. There is colonic diverticulosis without acute diverticulitis. Nodes and vessels: No pelvic or inguinal adenopathy by size criteria. Iliac vessels are normal in caliber. Soft tissues: No inguinal hernias. Bones: Marrow demonstrates normal overall signal, without suspicious lesions to suggest metastases. IMPRESSION: 1. Small bilateral lesions demonstrated in the transition zone of the prostate at high suspicion for clinically significant prostate cancer. PI-RADS: 4 2. No evidence of pelvic lymphadenopathy or adjacent extraprostatic invasion. 3. Mild bladder wall thickening and trabeculation compatible with sequela of chronic bladder outlet obstruction. Dictated by: David Baker M.D. on 09/14/2018 at 15:47 Approved by: David Baker M.D. on 09/14/2018 at 16:07
== END ==
PROVIDERS: Family Provider Student in an Organized Health Care Education/Training Program; PCP Student in an Organized Health Care Education/Training Program; Visit Provider Specialist
DX: C61 Malignant neoplasm of prostate (principal)
CPT/HCPCS: 72197; A9579

== ENCOUNTER 2018-10-05 06:16 | Inpatient (IN) | payer MEDICARE, SELFPAY ==
[2018-06-22 15:24] VITALS: BMI 33.7
[2018-09-21 12:58] VITALS: BMI 33.9
[2018-10-05] VITALS (17 sets, daily range): BP systolic 123–174; BP diastolic 65–93; PULSE 57–89; RESP 11–20; TEMP 36.1–37.4; O2SAT 95–98; BMI 32.8
--- NOTE | 2018-10-05 06:00 | DI.RAD.S_ITS ---
PROCEDURE: XR KNEE RT 1TO2V INDICATIONS: post op right TKA TECHNIQUE: 3 view(s) of the knee acquired. COMPARISON: [facility], CR, KNEE 3V LEFT, 04/01/2011, 14:33. FINDINGS: Bones: Patient is status post knee joint arthroplasty. Hardware components are in expected positions. Visualized bony structures are intact. Soft tissues: Overlying postoperative changes are noted. IMPRESSION: Status post right total knee arthroplasty without acute hardware complication. Dictated by: Jace Bo M.D. on 10/05/2018 at 10:21 Approved by: Jace Bo M.D. on 10/05/2018 at 10:21
[2018-10-05] MEDS: PREGABALIN 75 MG CAPSULE PO (07:05)
[2018-10-05] MEDS: ACETAMINOPHEN 325 MG TABLET 975 MG PO ×4 (07:05→20:27)
[2018-10-05] MEDS: CELECOXIB 200 MG CAPSULE PO (07:05)
--- NOTE | 2018-10-05 07:25 | PM.PREOP ---
Pre-operative Note Interval Note History & Physical reviewed/Exam performed by Physician: Yes Changes to H&P: No
--- NOTE | 2018-10-05 07:28 | P.OP_ITS ---
Operative Date/Time/Diagnoses Date of procedure: 10/05/18 Time of procedure: 09:42 Pre-op diagnosis: Right knee osteoarthritis Post-op diagnosis: same Procedure & Clinicians Procedure: Right total knee arthroplasty Same procedure as scheduled: Yes Indications: The patient presents today for total knee arthroplasty after failure of conservative treatment. The nature of the procedure including the risks and benefits, alternatives, postoperative course and expected outcome were discussed and all questions answered. Consent was obtained. Operative site confirmed and marked. Surgeon: David Shore Assistant Center Director: Sawyer Sosa Operative Notes Prosthetic devices, grafts, tissues, transplants, or devices: [employer] [place] BCS: 8 femoral component, 6 tibial component, 10 mm BCS polyethylene tray and 35 mm round patella Procedure in detail: The patient was taken to the operative suite and placed under spinal anesthesia and an abductor nerve block. The patient was given prophylactic antibiotics prior to surgery. The patient was also given tranexamic acid, 1 g, just prior to surgery for postoperative hemostasis. The lateral knee was prepped and the joint injected with 20 mL of 1% Lidocaine with epinephrine. The knee was then prepped and draped in usual sterile fashion. The leg was exsanguinated with an Esmarch dressing and the tourniquet raised to 250 torr. A 15 cm anterior incision was made. Next a medial trivector arthrotomy was made. The extensor mechanism was marked to ensure accurate repair. Initial exposing dissection was carried out medially and laterally. The knee was then extended and the patellar thickness was measured and a cut made removing approximately 9 mm of bone. The patella was then sized and drilled. Some excess lateral bone was excised and the patellofemoral ligament released. The knee was then flexed and the intramedullary femoral guide maury placed. The distal femoral cut was made in 6 ? of valgus at the + 0 position. The femoral size was measured and the appropriate cutting block was then placed and the anterior, posterior and chamfer cuts made. The intramedullary tibial guide was placed. The guide was set to remove approximately 10 mm from the less affected lateral side. The proximal tibial cut was then made with an oscillating saw. All meniscus and bony debris was then removed. Flexion extension gaps were checked. No specific balancing was required other than routine removal of osteophytes. There were for a pretty extensive osteophytes along the medial tibia. The soft tissues were then injected with a combination of 20 mL of half percent Marcaine with epinephrine and 20 mL of Exparel. The trial components were then placed. The knee went into full extension and flexion beyond 120?. There was excellent medial- lateral balance throughout motion. Patellar tracking was excellent. The trial components were removed and the knee was cleansed with Pulsavac irrigation and dried. The final components were cemented in with high viscosity vacuum mixed bone cement with antibiotics. The knee was held in extension and the patellar clamp until the cement had adequately cured. The knee was irrigated and inspected for any further debris. The knee was then irrigated with dilute Betadine solution. The extensor mechanism was closed with 5 interrupted #1 Vicryl sutures in 90 degrees of flexion. The joint was then injected with a combination of 1 g of tranexamic acid and 20 mL of quarter percent Marcaine with epinephrine. The subcutaneous tissue was closed with 2-0 Vicryl. The skin was closed with sharon and surgical adhesive. An Aquacell dressing and Bernardino wrap were then applied. The patient tolerated the procedure well and was returned to recovery room in good condition. Plan for aftercare: [facility] protocol for total knee arthroplasty.
--- NOTE | 2018-10-05 07:28 | SUR.PREOP ---
INR order cancelled per Dr. Avila.
[2018-10-05] MEDS: LACTATED RINGERS 1,000 ML 42 ML IV ×2 (07:29→08:55)
[2018-10-05] MEDS: fentaNYL 100 MCG/2 ML INJ 50 MCG IV (07:42)
[2018-10-05] MEDS: MIDAZOLAM 2 MG/2 ML VIAL IV (07:43)
[2018-10-05] MEDS: CEFAZOLIN 2 GM/100 ML FROZ.PIGGY IV ×3 (07:53→23:51)
--- NOTE | 2018-10-05 07:53 | SUR.PREOP ---
Block start time [0742] . Monitoring initiated and maintained throughout procedure. Oxygen and medications given per anesthesiologist instructions. Patient remained stable throughout procedure, no adverse reactions noted. Block end time [0748].
--- NOTE | 2018-10-05 07:54 | SUR.PREOP ---
Pt's spouse noted a red area on the back of pt's lt arm on the way to the OR. Unsure of origin.
[2018-10-05] MEDS: LIDOCAINE 1% W/EPI INJ 20 ML INJ (08:10)
[2018-10-05] MEDS: TRANEXAMIC ACID 1,000 MG VIAL 1000 MG INJ (08:20)
--- NOTE | 2018-10-05 08:32 | SUR.OPER ---
Supine on padded OR bed. Pillow under head, arms secured on padded armboards <90 degree abduction. Safety belt across torso. Non-operative leg secured with tape over blanket over lower leg. Operative leg secured in DeMayo/Vikash positioner. Foam padded brace at thigh of operative leg.
[2018-10-05] MEDS: BUPIVACAINE 0.25% W/ EPI 30 ML VIAL 60 ML INJ (08:46)
[2018-10-05] MEDS: BUPIVACAINE LIPOSOME 266 MG/20 ML VIAL INJ (08:46)
[2018-10-05] MEDS: BUPIVACAINE 0.25% W/ EPI (PF) 20 ML, TRANEXAMIC ACID 1,000 MG, SODIUM CHLORIDE 0.9% 10 ML INJ (08:48)
[2018-10-05] MEDS: SODIUM CHLORIDE IRRIG SOLUTION 250 ML, POVIDONE-IODINE SPONGE STICKS 1 APPLIC IRR (09:12)
--- NOTE | 2018-10-05 10:00 | SUR.PHASEI ---
To PACU from OR, awake, drowsy on arrival (currently wide awake). RLE elevated on pillow. Edema, pitting behind medial ankle. Pt states this is normal. Minimal pitting on the top of the foot. bilateral ankle edema. Pt awake, taking ice chips. Oriented, calm and pleasant.
--- NOTE | 2018-10-05 10:16 | SUR.PHASEI ---
Stable, preparing to transfer. Tolerating ice chips well, continues to have no pain or nausea. Clothing bag and CPAP to floor with the patient.
--- NOTE | 2018-10-05 10:32 | SUR.PHASEI ---
1022 To room 219; Bed down and locked, call light within reach. Report given on arrival. Pt awake and oriented, stable. Pleasant. SCDs on. sent to room.
[2018-10-05] MEDS: LACTATED RINGERS 1,000 ML 125 ML IV ×2 (11:00→20:30)
--- NOTE | 2018-10-05 11:31 | PC.NURSE ---
1020 Pt arrived from PACU via bed post op. Pt awake, alert, ox4. SL to r hand. Pt on r/a, sats 97%, Pt uses a cpap at home, has equipment w/him. R Knee dressing/sveta wrap intact, ice to the site. Pt able to wiggle L foot, no movement yet on the R surgical extremity. 1100 Pt IVF infusing, Taking in po fluids, at bedside. Pt denies pain at this time.
[2018-10-05] MEDS: BENAZEPRIL 5 MG TABLET 10 MG PO (12:31)
[2018-10-05] MEDS: METFORMIN XR 500 MG TABLET PO ×3 (12:32→20:29)
[2018-10-05] MEDS: CARVEDILOL 3.125 MG TABLET PO ×2 (12:32→20:28)
[2018-10-05] MEDS: CHLORTHALIDONE 25 MG TABLET PO (12:32)
--- NOTE | 2018-10-05 13:40 | PT.IIE ---
Current Diagnoses Bilateral primary osteoarthritis of knee (10/05/18) Surgery Performed Operation Date: 10/05/18 07:45 Actual Procedures p Total Knee Arthroplasty(Right) - David Shore MD Surgical History (Last Updated 09/21/18 @ 13:09 by Darlene Richmond RN) History of arthroplasty of right shoulder (Acute 01/24/18) H/O vasectomy (Acute ~1986) History of left-sided carotid endarterectomy (Acute ~2006) History of nasal surgery (Acute ~1984) Hx of arthroscopy of right knee (Acute) Hx of cholecystectomy (Acute ~2002) Hx of colonoscopy (Acute) Hx of eye surgery (Acute) Hx of hernia repair (Acute) Hx of tonsillectomy (Acute) S/P foot surgery, right (Acute 12/23/17) Medical History (Last Updated 09/21/18 @ 13:10 by Darlene Richmond RN) Elevated PSA (Acute ~08/2018) Afib (Acute) CHF (congestive heart failure) (Acute) Diabetes (Acute) Easy bruisability (Acute) Edema (Acute) Enlarged prostate (Acute) HTN (hypertension) (Acute) VISH on CPAP (Acute) Pneumonia (Acute ~2007) Physical Therapy Inpatient Evaluation/Re-Eval M1 PT/OT-IP Prior Functional Status Start: 10/05/18 17:28 Freq: NEEDED Status: Active Protocol: Document 10/05/18 13:40 AB (Rec: 10/05/18 17:43 AB [id number]) Medical Review Prior Functional Status Medical History Reviewed Yes Communication able to make needs known Mobility and Gait pt stated that he is independent with all mobilities and ambulation without AD Social History Household Members spouse Living Arrangements House Number of Floors (Floors) Two Floors Number of Stairs To Enter/Railing? pt plans to stay on main level of the house has 3 steps to enter with L rail ascending has 16 steps to 2nd level bedroom with L rail ascending on first 3 steps and then has bilateral rails afterwards Home Environment High Toilet Walk in Shower Home Equipment Front Wheel Walker Straight Cane Shower Seat with Backrest Hand Held Shower Grab Bars In Shower Additional Social History Comment pt stated that he bolted a leash against the wall for him to pull on to help him get up from the toilet. M2 PT-IP Current Condition Start: 10/05/18 17:28 Freq: NEEDED Status: Active Protocol: Document 10/05/18 13:40 AB (Rec: 10/05/18 17:43 AB [id number]) Physical Therapy Current Condition Current Condition Evaluation Date 10/05/18 Treatment Diagnosis s/p R TKA; difficulty in walking Onset Date 10/05/18 Weight Bearing Status Weight Bearing Status Weight Bear as Tolerated M3 PT-IP Subjective Start: 10/05/18 17:28 Freq: NEEDED Status: Active Protocol: Document 10/05/18 13:40 AB (Rec: 10/05/18 17:43 AB [id number]) Subjective Physical Therapy Visit Type Type Initial Evaluation Visit Start Time 13:40 Visit Stop Time 14:27 Total Visit Minutes 47 Number of REG[employer]ATORY AFF[employer] INTER[employer] Visits 0 Physical Therapy Visit Comments Patient Comments pt agreeable to do PT Therapy Pain Assessment Pain When Pain Assessed At Rest Pain Present Pain Present Pain Reported Location Rt Knee Intensity 3 Scale Used Numeric (1 - 10) Pain Management Techniques Apply Cold Re-positioning Timing of Activity with Medications M4 PT-IP Mobility and Gait Start: 10/05/18 17:28 Freq: NEEDED Status: Active Protocol: Document 10/05/18 13:40 AB (Rec: 10/05/18 17:43 AB [id number]) PT-Bed Mobility Assessment Supine to Sit Supine to Sit Standby Assistance Sit to Supine Sit to Supine Standby Assistance Scooting Scooting to Edge of Bed Standby Assistance PT-Transfer Assessment Sit to and From Stand Sit to and from Stand Minimal Assistance Moderate Assistance 1 Person Assistance Use of Upper Extremities Equipment Transfer Assistive Device Gait Belt Front Wheeled Walker Orthotic/Prosthetic Devices or Brace: No Gait Assessment Gait Gait Assistance Required: Minimum Assistance Moderate Assistance 1 Person Assist Distance (Feet) 40 Able to Maintain Weight Bearing Status Yes During Gait Assistive Devices Assistive Device Gait Belt Front Wheeled Walker Orthotic/Prosthetic Devices or Brace: No Gait Deviations General Gait Pattern Antalgic Decreased Stride Length Decreased Feet Clearance Factors Limiting Gait Function Factors Limiting Gait Function Decreased Activity Tolerance Decreased Strength Limited Range of Motion Pain Poor Balance Comments Gait Comments pt completed ambulation in room using FWW ~ 40 ft min to mod A and cues to activate R quad muscles. pt requested to go back to bed after ambulation. set pt in bed. ice pack provided. call light and table placed within reach. PT-Balance Assessment Sitting Balance and Reactions Static Sitting Balance Ability Good Dynamic Sitting Balance Ability Good Standing Balance and Reactions Static Standing Balance Ability Fair Dynamic Standing Balance Ability Fair Device Used FWW M5 PT-IP Objective Assessments Start: 10/05/18 17:28 Freq: NEEDED Status: Active Protocol: Document 10/05/18 13:40 AB (Rec: 10/05/18 17:43 AB [id number]) Orientation Orientation/Cognition Level of Alertness Alert Orientation Name Place Situation Language Function Ability No Deficits Noted Safety Awareness Understands Safety Issues Memory Description No Deficits Noted Gross Range of Motion Lower Extremity ROM Assessment Right Impaired Impairments R knee flexion: 70 deg Strength Lower Extremity Strength Assessment Right Impaired Hip 3+/5 Knee 3/5 Coordination Assessment Gross Coordination Gross Coordination WNL Sensation Assessment Sensation Gross Sensation WNL Muscle Tone Muscle Tone WNL Yes M6 PT-IP Treatment Start: 10/05/18 17:28 Freq: NEEDED Status: Active Protocol: Document 10/05/18 13:40 AB (Rec: 10/05/18 17:43 AB [id number]) Physical Therapy Treatment Exercises Exercises Quad Sets Heel Slides Education Education Provided Precautions Weight Bearing Status Post-Op Packet Safety M7 PT-IP Assessment and Plan Start: 10/05/18 17:28 Freq: NEEDED Status: Active Protocol: Document 10/05/18 13:40 AB (Rec: 10/05/18 17:43 AB [id number]) PT Summary Assessment and Plan Potential Rehabilitation Potential Good Status of Condition at Evaluation Stable Summary Impairments Pain ROM Strength Balance Coordination Sensation Tone Cognition Bed Mobility Transfers Gait Activity Tolerance Assessment Summary pt requring min to mod A with mobility using FWW. pt just had surgery this morning and will likely progress in mobility during hospital stay. pt plans to go home with spouse to assist him. pt also has outpt PT set up. Goals Bed Mobility Goal Independent Transfer Goal Independent Front Wheeled Walker Gait Goal Independent Front Wheel Walker Gait Distance 200 Other Goals up/down 3 steps with L rail ascending Days to Meet Goals 5 Frequency of Treatment Frequency Of Treatment Twice a Day Treatment Plan Physical Therapy Treatment Plan Bed Mobility Training Transfer Training Gait Training Therapeutic Exercise Balance Retraining Post Op Education Discharge Planning Hot or Cold Pack Neuromuscular Re-ed Coordination Retraining Manual Therapy Other Recommendations and Next Treatment ambulation, stair climbing. Focus caregiver training Recommendations To Nursing Amount of Assist Needed 1 Person Assist Discharge Recommendations PT Discharge Recommendations Home with Assistance Outpatient PT
[2018-10-05] MEDS: OXYCODONE IR 5 MG TABLET PO ×4 (13:44→23:14)
[2018-10-05] MEDS: HYDROMORPHONE 0.5 MG INJ IV (16:13)
[2018-10-05] MEDS: TAMSULOSIN 0.4 MG CAPSULE 0.8 MG PO (20:27)
--- NOTE | 2018-10-05 21:43 | PC.NURSE ---
Evening Shift Note- Patient alert and oriented and able to make needs known to staff. Patient pleasent, calm, and cooperative with care. PRN oxycodone given last at 2030 as ordered per patient request for complaints of pain. Patient tolerated with no s/s of ASE noted. Aquacell dressing with sveta wrap C/D/I. Ice packs provided. Safety measures in place. Patient calls appropriatly. call crowley and phone within reach. will continue to monitor.
[2018-10-06] MEDS: HYDROMORPHONE 0.5 MG INJ IV (00:50)
[2018-10-06] MEDS: OXYCODONE IR 5 MG TABLET PO ×2 (02:51→08:16)
[2018-10-06 03:05] VITALS: BP 146/83; PULSE 87; RESP 16; TEMP 37.4; O2SAT 94
--- NOTE | 2018-10-06 04:13 | PC.NURSE ---
[facility] Summary PO Day 1. Aquacel dressing and compression wrap over incision on R knee are CDI. Pt tolerating PO pain meds including TID Tylenol and PRN oxycodone. Pain at highest was 8/10 for which pt was given oxycodone with only minimal relief. Gave dilaudid IV x1 with reduction in pain to tolerable level and pt was able to fall asleep. Compliant with SCDs.
[2018-10-06] MEDS: LACTATED RINGERS 1,000 ML 125 ML IV (05:18)
[2018-10-06 07:01] LABS: Hematocrit 36.8 % (41-53); Hemoglobin 12.5 g/dL (13.5-17.5)
[2018-10-06 07:30] VITALS: BP 158/94; PULSE 86; PULSE 88; RESP 16; TEMP 37; O2SAT 95; O2SAT 96
[2018-10-06] MEDS: ONDANSETRON 4 MG ODT PO (08:15)
[2018-10-06] MEDS: ACETAMINOPHEN 325 MG TABLET 975 MG PO ×3 (08:16→21:05)
[2018-10-06] MEDS: CARVEDILOL 3.125 MG TABLET PO ×2 (08:21→21:06)
[2018-10-06] MEDS: APIXABAN 5 MG TABLET PO ×2 (08:21→21:06)
[2018-10-06] MEDS: CHLORTHALIDONE 25 MG TABLET PO (08:21)
[2018-10-06] MEDS: METFORMIN XR 500 MG TABLET PO ×2 (08:21→16:52)
[2018-10-06] MEDS: BENAZEPRIL 5 MG TABLET 10 MG PO (08:21)
--- NOTE | 2018-10-06 08:22 | CM.DANOTE ---
Addendum entered by Peri Li LPN 10/06/18 16:05: Review of HORSE SHOER's notes for today do show a recommendation for home setting with assistance and OUTPT PT but she also notes he has been slow to mobilize. Addendum entered by Peri Li LPN 10/06/18 15:59: Was updated by HORSE SHOER Paz this afternoon that pt was very slow to mobilize and she had discussed possible snf rehab need with him. She agreed that OT would be a helpful assessment and order for same is obtained. Will plan to check in with pt tomorrow morning and follow up. He may well be greatly improved. INPT admissions status was confirmed earlier today by DEBRA Dang so pt does have the snf benefit if need be but he also may just need an extra day on hospital based care. P: at this point: home with spouse and OUTPT PT vs ? of snf stay.....to be determined. Original Note: Discharge Planning/Care Management DCP: assessment: case received, EMR reviewed. Pt is a 73 year old male who admitted yesterday for a planned R TKA. Surgeon: Dr. Shore. Kristin protocol: noted Pre-op plan: home with 's support and OUTPT PT [facility] Medicare [facility] Admission status: in review: per DEBRA Dang PT Zulma did see pt yesterday afternoon for first session and thus far he is looking appropriate for a home d/c setting as per his plan. P: discuss case in Team Rounds this morning. Meet with pt for introduction of self and role and follow up accordingly for d/c issues and options. Advanced directive, confirm from FAMILY Start: 10/05/18 12:43 Freq: Q24H Status: Active Protocol: Document 10/05/18 19:05 AGW (Rec: 10/05/18 19:05 AGW [id number]) Advance Directive, confirm on record Time 19:00 Person contacted spouse Copy received No CM Discharge Assessment Start: 10/06/18 08:20 Freq: Status: Active Protocol: Document 10/06/18 08:20 ITV (Rec: 10/06/18 08:21 ITV [id number]) Discharge Planning Assessment Advance Directives? Yes Advance Directives on File No History Provided By Patient Medical Record Prior Living Arrangements House Household Members spouse Independent with ADL's Yes Is patient alert and oriented? Yes Review Status In Process Pre-Anesthesia Assessment Start: 09/21/18 12:58 Freq: Status: Complete Protocol: Document 09/21/18 12:58 CAB (Rec: 09/21/18 13:21 CAB [id number]) Pre-Anesthesia Assessment Patient Also Known As Yarbrough (AKA) Patient Information Reviewed Via Phone Assessment Assessment Completed With Patient Diagnostic Results BMP/CMP CBC EKG Comment Labs/EKG @ [facility] Primary Care Provider Chava Rodriguez Seen Specialist in Last 12 Months Yes Specialist Seen Keeper Head Orthopedist Urologist Primary Language Sami Preferred Language Sami Height 180.34 cm Weight 110.223 kg Body Mass Index (BMI) 33.9 Hearing Ability Normal Visual Assist Magnifying Glass Dentition Type Teeth, Natural Present Barriers to Learning None Hx Anesthesia Reactions Yes: I'm slow to come out of it Hypotension Hx Family Anesthesia Reaction No Hx Malignant Hyperthermia No Hx Blood Transfusions No Anesthesia Review Requested No alcohol intake current alcohol intake frequency a few times a week Smoking Status Current some day smoker Tobacco type cigars Substance Use Type other Comment CBD cream Pain Present Pain Reported Musculoskeletal Symptoms Abnormal Gait Difficulty Walking Joint Pain Limited Range of Motion History of Falling (Recent or History of No ) Patient is completely paralyzed or No completely immobile Mental Status Oriented to own ability Is patient on oxygen? No Does patient have PASTOR/SOB No Hx Sleep Apnea Yes CPAP/BIPAP use prescribed and used routinely Will Bring CPAP/BIPAP DOS Yes Currently Taking a Beta Ginette Yes: Carvedilol Anti-Coagulant Therapy Yes: Eliquis-pt advised to hold 4 days prior per Surgeon Has a Keeper Head Yes: Dr. Ervin-Last cardiac note scanned to record Diet Type At Home Regular dysphagia No Urinary Catheter Present No Hx Urinary Self Catheterization No Diabetes Yes: Does not check blood sugars at home HgbA1C 5.7 Date 08/08/18 Hx Drug Resistant Organism No Presence of External or Internal Medical No Devices Have you traveled outside the [facility] in the last 30 days? Marital Status Lives With spouse Prior Living Arrangements House Number of Floors (Floors) Two Floors Number of Stairs To Enter/Railing? 10 stairs w/double railings in front, 2 steps in garage, no railing Support System Friend(s) Spouse Does the Patient Have Assistance After Yes Surgery Patient Discharge Plan Description Return Home Comment Pt advised overnight length of stay per surgeon's office Feels Safe in Current Environment Yes Been Physically Hurt or Threatened By a No Person in Current Environment Do you have thoughts of harming yourself None or others? Are you currently considering suicide? No Do you have a plan to hurt yourself or No Plan others? Do You Have Any Spiritual Beliefs That No May Affect Your HC Choices? Do You Have Any Cultural Practices That No May Affect Your HC Choices? Who Can We Speak to About Patient's Care Family, friends Identifying Code for Release of Patient Declines to issue Information Health Care Proxy/Next of Kin Sheila Reyes () Health Care Proxy Emergency Contact Name Sheila Reyes () Emergency Contact Advance Directives? Yes Advance Directives on File No Requested Patient Bring Advanced Yes Directives DOS Power of Active Directory Systems Administrator No PAC Instructions Bring CPAP/BIPAP Durable medical equipment Medications to take/avoid Nasal antibiotic No ETOH/petroleum product on skin DOS NPO Post-op transportation Pre-surgical wash Sturdy shoes/comfortable clothes Do not bring valuables and remove jewelry
--- NOTE | 2018-10-06 09:15 | PT.IPTN ---
Current Diagnoses Bilateral primary osteoarthritis of knee (10/05/18) Surgery Performed Operation Date: 10/05/18 07:45 Actual Procedures p Total Knee Arthroplasty(Right) - David Shore MD Physical Therapy Treatment Note M2 PT-IP Current Condition Start: 10/05/18 17:28 Freq: NEEDED Status: Active Protocol: Document 10/05/18 13:40 AB (Rec: 10/05/18 17:43 AB [id number]) Physical Therapy Current Condition Current Condition Evaluation Date 10/05/18 Treatment Diagnosis s/p R TKA; difficulty in walking Onset Date 10/05/18 Weight Bearing Status Weight Bearing Status Weight Bear as Tolerated M3 PT-IP Subjective Start: 10/05/18 17:28 Freq: NEEDED Status: Active Protocol: Document 10/06/18 11:40 GGD (Rec: 10/06/18 11:44 GGD [id number]) Subjective Physical Therapy Visit Type Type Treatment Note Visit Start Time 08:40 Visit Stop Time 09:17 Total Visit Minutes 37 Number of REAL TIME TRADER Visits 1 Physical Therapy Visit Comments Patient Comments Pt states he had lots of pain. Therapy Pain Assessment Pain When Pain Assessed At Rest Pain Present Pain Present Pain Reported Location Rt Knee Intensity 6 Scale Used Numeric (1 - 10) Pain Management Techniques Apply Cold Re-positioning Timing of Activity with Medications M4 PT-IP Mobility and Gait Start: 10/05/18 17:28 Freq: NEEDED Status: Active Protocol: Document 10/06/18 11:40 GGD (Rec: 10/06/18 11:44 GGD [id number]) PT-Bed Mobility Assessment Sit to Supine Sit to Supine Minimal Assistance Scooting Scooting to Edge of Bed Contact Guard Assistance PT-Transfer Assessment Sit to and From Stand Sit to and from Stand Moderate Assistance 1 Person Assistance Use of Upper Extremities Equipment Transfer Assistive Device Gait Belt Front Wheeled Walker Orthotic/Prosthetic Devices or Brace: No Transfers Transfer Destination Bed Toilet Gait Assessment Gait Gait Assistance Required: Contact Guard Assist Minimum Assistance 1 Person Assist Distance (Feet) 35 Able to Maintain Weight Bearing Status Yes During Gait Assistive Devices Assistive Device Gait Belt Front Wheeled Walker Orthotic/Prosthetic Devices or Brace: No Gait Deviations General Gait Pattern Antalgic Decreased Stride Length Decreased Feet Clearance Factors Limiting Gait Function Factors Limiting Gait Function Decreased Activity Tolerance Decreased Strength Limited Range of Motion Pain Poor Balance Comments Gait Comments Pt need mod cues for gait pattern and use of UE for support. M5 PT-IP Objective Assessments Start: 10/05/18 17:28 Freq: NEEDED Status: Active Protocol: Document 10/05/18 13:40 AB (Rec: 10/05/18 17:43 AB [id number]) Orientation Orientation/Cognition Level of Alertness Alert Orientation Name Place Situation Language Function Ability No Deficits Noted Safety Awareness Understands Safety Issues Memory Description No Deficits Noted Gross Range of Motion Lower Extremity ROM Assessment Right Impaired Impairments R knee flexion: 70 deg Strength Lower Extremity Strength Assessment Right Impaired Hip 3+/5 Knee 3/5 Coordination Assessment Gross Coordination Gross Coordination WNL Sensation Assessment Sensation Gross Sensation WNL Muscle Tone Muscle Tone WNL Yes M6 PT-IP Treatment Start: 10/05/18 17:28 Freq: NEEDED Status: Active Protocol: Document 10/06/18 11:40 GGD (Rec: 10/06/18 11:44 GGD [id number]) Physical Therapy Treatment Exercises Exercises Ankle Pumps Quad Sets Heel Slides Seated Knee Flexion/Extension Education Education Provided Precautions Weight Bearing Status Safety M7 PT-IP Assessment and Plan Start: 10/05/18 17:28 Freq: NEEDED Status: Active Protocol: Document 10/06/18 11:40 GGD (Rec: 10/06/18 11:44 GGD [id number]) PT Summary Assessment and Plan Summary Assessment Summary Pt had poor tolerance to weight bearing and gait. He was very slow moving and unable to tolerate weight bearing to unload L LE for step. He need mod A for sit to stand. HE will need to progress with mobility before D/C. Frequency of Treatment Frequency Of Treatment Twice a Day Treatment Plan Physical Therapy Treatment Plan Bed Mobility Training Transfer Training Gait Training Therapeutic Exercise Balance Retraining Post Op Education Discharge Planning Hot or Cold Pack Neuromuscular Re-ed Coordination Retraining Manual Therapy Recommendations To Nursing Amount of Assist Needed 1 Person Assist Discharge Recommendations PT Discharge Recommendations Home with Assistance Outpatient PT
--- NOTE | 2018-10-06 09:54 | PM.PNPO.1 ---
Subjective Date Patient Seen: 10/06/18 Time Patient Seen: 09:54 Interval history: Patient's pain is moderate to severe. Notes lower extremity weakness working with Physical therapy this morning. Patient was only able to walk to the bathroom and back before he got tired and weak. Denies any shortness of breath or chest pain. He is urinating well on his own. Exam Vital Signs (past 8 hours): - 10/06/18 03:05 10/06/18 07:30 Temperature 99.4 F 98.6 F Pulse Rate 87 88 Respiratory Rate 16 16 Blood Pressure 146/83 H 158/94 H Pulse Oximetry 94 96 Fraction of Inspired Oxygen 21 Oxygen Delivery Method Room Air Oxygen Flow Rate 0 Narrative Exam Narrative: 73-year-old male resting comfortably in bed in no apparent distress. Right knee dressing is clean, dry and intact. Right leg is warm and dry. Motor functions intact distally. Sensation grossly intact to light touch. Objective Labs Result Diagrams: 10/06/18 06:45 Labs: Laboratory Results - last 24 hr 10/06/18 06:45 Hgb 12.5 L Hct 36.8 L Assessment & Plan Post-op Postoperative Procedures Operation Date: 10/05/18 07:45 Actual Procedures Side Surgeon p Total Knee Arthroplasty Right David Shore MD Postop day 1 status post right total knee arthroplasty. Mobilize with physical therapy. Continue work on pain control today. Likely discharge home tomorrow. Quality VTE Deep Vein Thrombosis/Pulmonary Embolism Present on Admission: No
[2018-10-06 11:29] VITALS: BP 149/63; PULSE 88; RESP 16; TEMP 37.9; O2SAT 94
[2018-10-06] MEDS: OXYCODONE IR 10 MG TABLET PO ×4 (11:32→22:55)
--- NOTE | 2018-10-06 14:15 | PT.IPTN ---
Current Diagnoses Bilateral primary osteoarthritis of knee (10/05/18) Surgery Performed Operation Date: 10/05/18 07:45 Actual Procedures p Total Knee Arthroplasty(Right) - David Shore MD Physical Therapy Treatment Note M2 PT-IP Current Condition Start: 10/05/18 17:28 Freq: NEEDED Status: Active Protocol: Document 10/05/18 13:40 AB (Rec: 10/05/18 17:43 AB [id number]) Physical Therapy Current Condition Current Condition Evaluation Date 10/05/18 Treatment Diagnosis s/p R TKA; difficulty in walking Onset Date 10/05/18 Weight Bearing Status Weight Bearing Status Weight Bear as Tolerated M3 PT-IP Subjective Start: 10/05/18 17:28 Freq: NEEDED Status: Active Protocol: Document 10/06/18 14:10 GGD (Rec: 10/06/18 15:45 GGD [id number]) Subjective Physical Therapy Visit Type Type Treatment Note Visit Start Time 13:45 Visit Stop Time 14:13 Total Visit Minutes 27 Number of MATERIAL CONTROL ASSOCIATE Visits 2 Physical Therapy Visit Comments Patient Comments Pt states he been up with nursing. Therapy Pain Assessment Pain When Pain Assessed At Rest Pain Present Pain Present Pain Reported Location Rt Knee Intensity 4 Scale Used Numeric (1 - 10) Pain Management Techniques Apply Cold Re-positioning Timing of Activity with Medications M4 PT-IP Mobility and Gait Start: 10/05/18 17:28 Freq: NEEDED Status: Active Protocol: Document 10/06/18 14:10 GGD (Rec: 10/06/18 15:45 GGD [id number]) PT-Bed Mobility Assessment Sit to Supine Sit to Supine Minimal Assistance Scooting Scooting to Edge of Bed Contact Guard Assistance PT-Transfer Assessment Sit to and From Stand Sit to and from Stand Minimal Assistance Moderate Assistance 1 Person Assistance Use of Upper Extremities Equipment Transfer Assistive Device Gait Belt Front Wheeled Walker Orthotic/Prosthetic Devices or Brace: No Transfers Transfer Destination Bed Toilet Comments Mobility Comments Mod A for sit to stand from chair, min A for sit to stand from bed. Gait Assessment Gait Gait Assistance Required: Contact Guard Assist Minimum Assistance 1 Person Assist Distance (Feet) 50 Able to Maintain Weight Bearing Status Yes During Gait Assistive Devices Assistive Device Gait Belt Front Wheeled Walker Orthotic/Prosthetic Devices or Brace: No Gait Deviations General Gait Pattern Antalgic Decreased Stride Length Decreased Feet Clearance Factors Limiting Gait Function Factors Limiting Gait Function Decreased Activity Tolerance Decreased Strength Limited Range of Motion Pain Poor Balance Comments Gait Comments Pt need min cues for gait pattern and use of UE for support. M5 PT-IP Objective Assessments Start: 10/05/18 17:28 Freq: NEEDED Status: Active Protocol: Document 10/05/18 13:40 AB (Rec: 10/05/18 17:43 AB [id number]) Orientation Orientation/Cognition Level of Alertness Alert Orientation Name Place Situation Language Function Ability No Deficits Noted Safety Awareness Understands Safety Issues Memory Description No Deficits Noted Gross Range of Motion Lower Extremity ROM Assessment Right Impaired Impairments R knee flexion: 70 deg Strength Lower Extremity Strength Assessment Right Impaired Hip 3+/5 Knee 3/5 Coordination Assessment Gross Coordination Gross Coordination WNL Sensation Assessment Sensation Gross Sensation WNL Muscle Tone Muscle Tone WNL Yes M6 PT-IP Treatment Start: 10/05/18 17:28 Freq: NEEDED Status: Active Protocol: Document 10/06/18 14:10 GGD (Rec: 10/06/18 15:45 GGD [id number]) Physical Therapy Treatment Exercises Exercises Ankle Pumps Quad Sets Heel Slides Seated Knee Flexion/Extension Education Education Provided Weight Bearing Status Safety M7 PT-IP Assessment and Plan Start: 10/05/18 17:28 Freq: NEEDED Status: Active Protocol: Document 10/06/18 14:10 GGD (Rec: 10/06/18 15:45 GGD [id number]) PT Summary Assessment and Plan Summary Assessment Summary Pt able to progress gait distance. He is mod A for sit to stand. He has poor control with sitting. He limit tolerance to weight bearing and unable to clear LE for stair mobility. Frequency of Treatment Frequency Of Treatment Twice a Day Recommendations To Nursing Amount of Assist Needed 1 Person Assist Discharge Recommendations PT Discharge Recommendations Home with Assistance Outpatient PT
[2018-10-06 15:05] VITALS: BP 145/73; PULSE 60; RESP 18; TEMP 37.2; O2SAT 93
[2018-10-06] MEDS: ROSUVASTATIN 10 MG TABLET 5 MG PO (16:51)
[2018-10-06 19:30] VITALS: BP 152/71; PULSE 102; RESP 20; TEMP 36.8
[2018-10-06] MEDS: TAMSULOSIN 0.4 MG CAPSULE 0.8 MG PO (21:06)
[2018-10-07] VITALS (8 sets, daily range): BP systolic 117–142; BP diastolic 57–83; PULSE 82–103; RESP 14–18; TEMP 36.4–37.5; O2SAT 93–96
[2018-10-07] MEDS: OXYCODONE IR 10 MG TABLET PO ×5 (02:54→20:54)
[2018-10-07] MEDS: ACETAMINOPHEN 325 MG TABLET 975 MG PO ×2 (08:18→20:51)
[2018-10-07] MEDS: METFORMIN XR 500 MG TABLET PO ×3 (08:20→17:02)
[2018-10-07] MEDS: CARVEDILOL 3.125 MG TABLET PO ×2 (08:21→20:48)
[2018-10-07] MEDS: SODIUM CHLORIDE 0.9% FLUSH 10 ML IV ×2 (08:21→20:48)
[2018-10-07] MEDS: APIXABAN 5 MG TABLET PO ×2 (08:21→20:47)
[2018-10-07] MEDS: CHLORTHALIDONE 25 MG TABLET PO (08:21)
[2018-10-07] MEDS: BENAZEPRIL 5 MG TABLET 10 MG PO (08:21)
--- NOTE | 2018-10-07 09:24 | PM.PNPO.1 ---
Subjective Date Patient Seen: 10/07/18 Time Patient Seen: 09:24 Interval history: Hospital day 3, postop day 2 following right total knee arthroplasty by Dr. Shore. Patient remained stable. Did note some increased right leg pain the last 24 hours. Complaining of some discomfort to his thigh where the tourniquet was placed. This had slow progress with PT yesterday. There was some discussion about possible SNF he does not progress. He is a sweet path patient. He does plan to go to [facility]. Patient lives in [place]. Patient and his did not feel that he is ready for discharge today. He did have Eliquis started yesterday. Exam Vital Signs (past 8 hours): - 10/07/18 03:00 10/07/18 07:40 Temperature 99 F 98.6 F Pulse Rate 99 H 88 Respiratory Rate 15 16 Blood Pressure 134/62 142/83 H Pulse Oximetry 94 95 Fraction of Inspired Oxygen 21 Oxygen Delivery Method Room Air Oxygen Flow Rate 0 Narrative Exam Narrative: Alert, oriented in no acute distress sitting in chair. Legs. There is some tenderness and induration to the right thigh in the area of tourniquet placement. [place] wrap and a Aquacel dressing to right knee is dry without drainage or inflammation. Mild swelling of lower leg. Calf is soft and nontender. Good pulses distally. Objective Labs Result Diagrams: 10/06/18 06:45 Assessment & Plan Post-op Postoperative Procedures Operation Date: 10/05/18 07:45 Actual Procedures Side Surgeon p Total Knee Arthroplasty Right David Shore MD Plan: Patient will work with PT more today. Observe for further improvement. Anticipate discharge home tomorrow if stable. He will need prescription for oxycodone 5 mg number 30. Quality VTE Deep Vein Thrombosis/Pulmonary Embolism Present on Admission: No
--- NOTE | 2018-10-07 09:27 | P.PN_ITS ---
Subjective Date Patient Seen: 10/07/18 Time Patient Seen: 09:24 Interval history: Hospital day 3, postop day 2 following right total knee arthroplasty by Dr. Shore. Patient remained stable. Did note some increased right leg pain the last 24 hours. Complaining of some discomfort to h is thigh where the tourniquet was placed. This had slow progress with PT yesterday. There was some discussion about possible SNF he does not progress. He is a sweet path patient. He does plan to go to [facility]. Patient lives in [place]. Patient and his did not feel that he is ready for discharge today. He did have Eliquis started yesterday. Exam Vital Signs (past 8 hours): - 10/07/18 03:00 10/07/18 07:40 Temperature 99 F 98.6 F Pulse Rate 99 H 88 Respiratory Rate 15 16 Blood Pressure 134/62 142/83 H Pulse Oximetry 94 95 Fraction of Inspired Oxygen 21 Oxygen Delivery Method Room Air Oxygen Flow Rate 0 Narrative Exam Narrative: Alert, oriented in no acute distress sitting in chair. Legs. There is some tenderness and induration to the right thigh in the area of tourniquet placement. Bernardino wrap and a Aquacel dressing to right knee is dry without drainage or inflammation. Mild swelling of lower leg. Calf is soft and nontender. Good pulses distally. Objective Labs Result Diagrams: 10/06/18 06:45 Assessment & Plan Post-op Postoperative Procedures Operation Date: 10/05/18 07:45 Actual Procedures Side Surgeon p Total Knee Arthroplasty Right David Shore MD Plan: Patient will work with PT more today. Observe for further improvement. Anticipate discharge home tomorrow if stable. He will need prescription for oxycodone 5 mg number 30. Quality VTE Deep Vein Thrombosis/Pulmonary Embolism Present on Admission: No
--- NOTE | 2018-10-07 10:24 | PC.NURSE ---
AM Shift pt AO and receptive to care. at bedside. ROSANA wrap secure to right knee (CDI). Left forearm PIV is saline locked and flushing. pt reported 7/10 pain and I administered 10mg Oxycodone and 975 Tylentol at 0810, pt reassessed at 6/10 at 0950 and thinking about something for breakthrough. pt up with PT and ambulating hallways. PT relayed that pt was unable to walk the stairs and will be suggesting rehab instead of home. market development manager was made aware and has since conversed with the patient. Patient agrees.
--- NOTE | 2018-10-07 10:30 | CM.DPC ---
DCP: continued: met with pt as planned after Team Rounds. Ortho PA Martina indicated pt would likely be ready for d/c tomorrow and that he was still slow to progress. Pt is found sitting up in chair, knee encased in ice pack. He says he understands that the orthopedic team are encouraging him to go home at d/c but he is not certain he will be ready. He says the PT team is still telling him snf rehab will be best and thus he wishes to consider this. Offered to set up snf for him today so that this is in place if he needs this tomorrow. He readily agreed. SNF choice list: discussed. Pt says it must be in [place] and that my went over yesterday to look at [facility]. Decision: [facility] Referral: to [facility] via vm and efax....will await reponse. P: likely FCC tomorrow...DCP team to follow PASRR: not started.
--- NOTE | 2018-10-07 11:25 | PT.IPTN ---
Current Diagnoses Bilateral primary osteoarthritis of knee (10/05/18) Surgery Performed Operation Date: 10/05/18 07:45 Actual Procedures p Total Knee Arthroplasty(Right) - David Shore MD Physical Therapy Treatment Note M2 PT-IP Current Condition Start: 10/05/18 17:28 Freq: NEEDED Status: Active Protocol: Document 10/05/18 13:40 AB (Rec: 10/05/18 17:43 AB [id number]) Physical Therapy Current Condition Current Condition Evaluation Date 10/05/18 Treatment Diagnosis s/p R TKA; difficulty in walking Onset Date 10/05/18 Weight Bearing Status Weight Bearing Status Weight Bear as Tolerated M3 PT-IP Subjective Start: 10/05/18 17:28 Freq: NEEDED Status: Active Protocol: Document 10/07/18 10:00 HH (Rec: 10/07/18 11:25 HH [id number]) Subjective Physical Therapy Visit Type Type Treatment Note Visit Start Time 10:00 Visit Stop Time 10:19 Total Visit Minutes 19 Number of FACING END TRIMMER Visits 0 Physical Therapy Visit Comments Patient Comments Pt states he been up with nursing. Still have difficulty WB on RLE Therapy Pain Assessment Pain When Pain Assessed At Rest Pain Present Pain Present Pain Reported M4 PT-IP Mobility and Gait Start: 10/05/18 17:28 Freq: NEEDED Status: Active Protocol: Document 10/07/18 10:00 HH (Rec: 10/07/18 11:25 HH [id number]) PT-Transfer Assessment Sit to and From Stand Sit to and from Stand Moderate Assistance 1 Person Assistance Use of Upper Extremities Equipment Transfer Assistive Device Gait Belt Front Wheeled Walker Orthotic/Prosthetic Devices or Brace: No Transfers Transfer Destination Chair Comments Mobility Comments Pt up in low chair upon assessment. He needed to use rocking motion to facilitate STS, along with mod A. Gait Assessment Gait Gait Assistance Required: Contact Guard Assist Minimum Assistance 1 Person Assist Distance (Feet) 80 Able to Maintain Weight Bearing Status Yes During Gait Assistive Devices Assistive Device Gait Belt Front Wheeled Walker Orthotic/Prosthetic Devices or Brace: No Gait Deviations General Gait Pattern Antalgic Decreased Stride Length Decreased Feet Clearance Factors Limiting Gait Function Factors Limiting Gait Function Decreased Activity Tolerance Decreased Strength Limited Range of Motion Pain Poor Balance Comments Gait Comments Pt required cues to decrease his R turned out foot. Pt cont to use step to pattern who states he is only putting 30- 40% weight on R LE. M5 PT-IP Objective Assessments Start: 10/05/18 17:28 Freq: NEEDED Status: Active Protocol: Document 10/05/18 13:40 AB (Rec: 10/05/18 17:43 AB [id number]) Orientation Orientation/Cognition Level of Alertness Alert Orientation Name Place Situation Language Function Ability No Deficits Noted Safety Awareness Understands Safety Issues Memory Description No Deficits Noted Gross Range of Motion Lower Extremity ROM Assessment Right Impaired Impairments R knee flexion: 70 deg Strength Lower Extremity Strength Assessment Right Impaired Hip 3+/5 Knee 3/5 Coordination Assessment Gross Coordination Gross Coordination WNL Sensation Assessment Sensation Gross Sensation WNL Muscle Tone Muscle Tone WNL Yes M6 PT-IP Treatment Start: 10/05/18 17:28 Freq: NEEDED Status: Active Protocol: Document 10/07/18 10:00 HH (Rec: 10/07/18 11:25 [id number]) Physical Therapy Treatment Exercises Exercises Ankle Pumps Quad Sets Heel Slides Seated Knee Flexion/Extension Education Education Provided Weight Bearing Status Safety Other Treatments Other Treatment Performed assisted heel slide, able to reach close 90 standing TKE M7 PT-IP Assessment and Plan Start: 10/05/18 17:28 Freq: NEEDED Status: Active Protocol: Document 10/07/18 10:00 HH (Rec: 10/07/18 11:25 [id number]) PT Summary Assessment and Plan Summary Assessment Summary Cont to progress with gait distance. pt's current knee AROM is 10-85 and cont to have difficulty WB through RLE. He also has poor eccentric control for stand to sit due to pain. Pt agreed to short term rehab at SNF if needed. Will cont assess his mobility. Frequency of Treatment Frequency Of Treatment Twice a Day Treatment Plan Physical Therapy Treatment Plan Bed Mobility Training Transfer Training Gait Training Therapeutic Exercise Balance Retraining Post Op Education Discharge Planning Hot or Cold Pack Neuromuscular Re-ed Coordination Retraining Manual Therapy Other Recommendations and Next Treatment ROM ex Focus amb, stair climbing, CG training Recommendations To Nursing Amount of Assist Needed 1 Person Assist Discharge Recommendations PT Discharge Recommendations SNF Rehab
--- NOTE | 2018-10-07 12:22 | PC.NURSE ---
Addendum entered by Kimberly Goodwin R.N. 10/07/18 12:30: pt reporting 3/10 pain post shower. ROSANA wrap removed for shower and not applied yet. Small shadowing on aquacel outlined with marker. Original Note: shower and transfer to and from chair assisted with OT. Fresh ice packs and sitting up in chair for lunch.
--- NOTE | 2018-10-07 14:40 | PT.IPTN ---
Current Diagnoses Bilateral primary osteoarthritis of knee (10/05/18) Surgery Performed Operation Date: 10/05/18 07:45 Actual Procedures p Total Knee Arthroplasty(Right) - David Shore MD Physical Therapy Treatment Note M2 PT-IP Current Condition Start: 10/05/18 17:28 Freq: NEEDED Status: Active Protocol: Document 10/05/18 13:40 AB (Rec: 10/05/18 17:43 AB [id number]) Physical Therapy Current Condition Current Condition Evaluation Date 10/05/18 Treatment Diagnosis s/p R TKA; difficulty in walking Onset Date 10/05/18 Weight Bearing Status Weight Bearing Status Weight Bear as Tolerated M3 PT-IP Subjective Start: 10/05/18 17:28 Freq: NEEDED Status: Active Protocol: Document 10/07/18 14:40 AB (Rec: 10/07/18 16:13 AB [id number]) Subjective Physical Therapy Visit Type Type Treatment Note Visit Start Time 14:40 Visit Stop Time 15:25 Total Visit Minutes 45 Number of STORES ASSISTANT Visits 0 Physical Therapy Visit Comments Patient Comments pt agreeable to do PT Therapy Pain Assessment Pain When Pain Assessed At Rest Pain Present Pain Present Pain Reported Location Rt Knee Intensity 4 Scale Used increases to 6/10 with mobility Pain Management Techniques Apply Cold Re-positioning Timing of Activity with Medications M4 PT-IP Mobility and Gait Start: 10/05/18 17:28 Freq: NEEDED Status: Active Protocol: Document 10/07/18 14:40 AB (Rec: 10/07/18 16:13 AB [id number]) PT-Transfer Assessment Sit to and From Stand Sit to and from Stand Moderate Assistance Maximum Assistance 1 Person Assistance Use of Upper Extremities Equipment Transfer Assistive Device Gait Belt Front Wheeled Walker Orthotic/Prosthetic Devices or Brace: No Transfers Transfer Destination Chair Transfer Technique Stand Step Pivot Transfer Ability Level of Assist Moderate Assistance Comments Mobility Comments pt completed sit to stand from chair x 2 reps requiring mod to max A and max cues. pt with (+) L knee crepitus. (+) L knee slight bucking during standing requiring mod A for steadiness. pt completed sit <>stand from EOB mod A and cues. Gait Assessment Gait Gait Assistance Required: Minimum Assistance Moderate Assistance 1 Person Assist Distance (Feet) 100 Able to Maintain Weight Bearing Status Yes During Gait Assistive Devices Assistive Device Gait Belt Front Wheeled Walker Orthotic/Prosthetic Devices or Brace: No Gait Deviations General Gait Pattern Antalgic Decreased Stride Length Decreased Feet Clearance Flexed Trunk Step-to Gait Factors Limiting Gait Function Factors Limiting Gait Function Decreased Activity Tolerance Decreased Strength Limited Range of Motion Pain Poor Balance Comments Gait Comments pt continues to have unsteady antalgic gait and requires cues to activate quad muscles. Noted increase swelling on RLE. M5 PT-IP Objective Assessments Start: 10/05/18 17:28 Freq: NEEDED Status: Active Protocol: Document 10/05/18 13:40 AB (Rec: 10/05/18 17:43 AB [id number]) Orientation Orientation/Cognition Level of Alertness Alert Orientation Name Place Situation Language Function Ability No Deficits Noted Safety Awareness Understands Safety Issues Memory Description No Deficits Noted Gross Range of Motion Lower Extremity ROM Assessment Right Impaired Impairments R knee flexion: 70 deg Strength Lower Extremity Strength Assessment Right Impaired Hip 3+/5 Knee 3/5 Coordination Assessment Gross Coordination Gross Coordination WNL Sensation Assessment Sensation Gross Sensation WNL Muscle Tone Muscle Tone WNL Yes M6 PT-IP Treatment Start: 10/05/18 17:28 Freq: NEEDED Status: Active Protocol: Document 10/07/18 14:40 AB (Rec: 10/07/18 16:13 AB [id number]) Physical Therapy Treatment Exercises Exercises Ankle Pumps Heel Slides Seated Knee Flexion/Extension Education Education Provided Safety M7 PT-IP Assessment and Plan Start: 10/05/18 17:28 Freq: NEEDED Status: Active Protocol: Document 10/07/18 14:40 AB (Rec: 10/07/18 16:13 AB [id number]) PT Summary Assessment and Plan Potential Rehabilitation Potential Good Summary Impairments Pain ROM Strength Balance Coordination Bed Mobility Transfers Gait Activity Tolerance Progress Towards Goals Slow Progress due to Pain Slow Progress due to Medical Issues Slow Progress due to Activity Tolerance Assessment Summary pt requires mod to max A with sit to stand and mod A with ambulation using FWW. pt is motivated during PT and realistic on current level of function and need for SNF rehab at this time. pt had R TKA but also has problems with his L knee and shoulders affecting mobility. Goals Bed Mobility Goal Independent Transfer Goal Independent Front Wheeled Walker Gait Goal Independent Front Wheel Walker Gait Distance 200 Other Goals up/down 3 steps with L rail ascending Days to Meet Goals 5 Frequency of Treatment Frequency Of Treatment Twice a Day Treatment Plan Physical Therapy Treatment Plan Bed Mobility Training Transfer Training Gait Training Therapeutic Exercise Balance Retraining Post Op Education Discharge Planning Hot or Cold Pack Neuromuscular Re-ed Coordination Retraining Manual Therapy Other Recommendations and Next Treatment ROM ex Focus amb, stair climbing, CG training Recommendations To Nursing Amount of Assist Needed 1 Person Assist Discharge Recommendations PT Discharge Recommendations SNF Rehab
--- NOTE | 2018-10-07 18:00 | OT.IP.EVAL ---
Current Diagnoses Bilateral primary osteoarthritis of knee (10/05/18) Surgery Performed Operation Date: 10/05/18 07:45 Actual Procedures p Total Knee Arthroplasty(Right) - David Shore MD Past Medical History (Last Updated 09/21/18 @ 13:10 by Darlene Richmond, RN) Elevated PSA (Acute ~08/2018) Afib (Acute) CHF (congestive heart failure) (Acute) Diabetes (Acute) Easy bruisability (Acute) Edema (Acute) Enlarged prostate (Acute) HTN (hypertension) (Acute) VISH on CPAP (Acute) Pneumonia (Acute ~2007) Surgical History (Last Updated 09/21/18 @ 13:09 by Darlene Richmond RN) History of arthroplasty of right shoulder (Acute 01/24/18) H/O vasectomy (Acute ~1986) History of left-sided carotid endarterectomy (Acute ~2006) History of nasal surgery (Acute ~1984) Hx of arthroscopy of right knee (Acute) Hx of cholecystectomy (Acute ~2002) Hx of colonoscopy (Acute) Hx of eye surgery (Acute) Hx of hernia repair (Acute) Hx of tonsillectomy (Acute) S/P foot surgery, right (Acute 12/23/17) Occupational Therapy Inpatient Evaluation/Re-Eval M1 PT/OT-IP Prior Functional Status Start: 10/07/18 17:36 Freq: NEEDED Status: Active Protocol: Document 10/07/18 11:31 [facility] (Rec: 10/07/18 18:00 [facility] [id number]) Medical Review Prior Functional Status Medical History Reviewed Yes Communication able to make needs known Mobility and Gait pt stated that he is independent with all mobilities and ambulation without AD Activities of Daily Living and IADL's Pt states indepedent with all ADl's and IADl's at times needing more time to complete. Social History Household Members spouse Living Arrangements House Number of Floors (Floors) Two Floors Number of Stairs To Enter/Railing? pt plans to stay on main level of the house has 3 steps to enter with L rail ascending has 16 steps to 2nd level bedroom with L rail ascending on first 3 steps and then has bilateral rails afterwards Home Environment High Toilet Walk in Shower Home Equipment Front Wheel Walker Straight Cane Shower Seat with Backrest Hand Held Shower Long Handled Sponge Long Handled Shoe Horn Geneticist Sock Aid Grab Bars In Shower Additional Social History Comment pt stated that he bolted a leash against the wall for him to pull on to help him get up from the toilet. M2 OT-IP Current Condition Start: 10/07/18 17:36 Freq: Status: Active Protocol: Document 10/07/18 11:31 [facility] (Rec: 10/07/18 18:00 [facility] [id number]) Occupational Therapy Current Condition Current Condition Evaluation Date 10/07/18 Treatment Diagnosis Right knee Osteoarthritis, s/p R TKA, weakness Diagnosis Onset Date 10/05/18 Weight Bearing Status Weight Bearing Status Weight Bear as Tolerated M3 OT- IP Subjective and Pain Start: 10/07/18 17:36 Freq: Status: Active Protocol: Document 10/07/18 11:31 [facility] (Rec: 10/07/18 18:00 [facility] [id number]) OT- Subjective Occupational Therapy Visit Type Type Initial Evaluation Visit Start Time 11:31 Visit Stop Time 12:23 Total Visit Minutes 52 Occupational Therapy Visit Comments Patient Comments Pt agreeable to shower. Patient/Caregiver Goals Pt wanting to go to rehab to get stronger prior to going home. OT Pain Assessment Pain When Pain Assessed At Rest Pain Present Pain Present Denied Pain M4 OT- IP ADL's Start: 10/07/18 17:36 Freq: Status: Active Protocol: Document 10/07/18 11:31 [facility] (Rec: 10/07/18 18:00 [facility] [id number]) OT [id number] General Evaluation Self-Feeding Ability Independent OT ADL-Grooming General Evaluation Grooming Ability Independent OT ADL-Oral Care General Eval Oral Care Ability Independent OT ADL-Dressing General Eval Upper Body Dressing Ability Minimal Assistance Lower Body Dressing Ability Maximum Assistance, educated to amairani RLE first as LLE moves better. Areas Needing Assistance Pull-Over Shirt Underpants/Brief Pants/Shorts Socks Comments OT Dressing Comments Pt needing assist to help pull down shirt in the back. Due to swelling of right foot pt needing assist to get socks on and assist to help amairani brief /pants over right foot. Initiated education of lower body dressing equipment , however pt too tired at the end of the shower to try. OT ADL-Toileting General Evaluation Toileting Ability Standby Assistance Devices Toileting Assistive Devices Urinal Comments OT Toileting Comments Pt able to sit to toilet and use urinal with set-up assist. OT ADL-Bathing Bathing Type Bathing Type Shower General Evaluation Bathing Ability Moderate Assistance Areas Needing Assistance Retrieving/Setting Up Items Wash/Dry Back Wash/Dry Lower Extremities Devices Bathing Equipment Hand Held Shower Sprayer Shower Chair with Arms Grab Bars Comments OT Bathing Comments Pt needing use of shower chair and heavy use of grab bars and therapist to assist to help merchandise pickup/receiving associate the shower when doing perineal care needs. Pt needing assist for washing/ drying lower legs and back. M5 OT- IP IADL's Start: 10/07/18 17:36 Freq: Status: Active Protocol: Document 10/07/18 11:31 [facility] (Rec: 10/07/18 18:00 [facility] [id number]) OT-Instrumental Activities of Daily Living Home Safety Awareness Ability to Problem Solve Emergency Able to Problem Solve Situations Meal Preparation Meal Preparation Comments Pt's can assist. Baggage Inspector Baggage Inspector Comments Pt's can assist. M6 OT- IP Functional Cognition Start: 10/07/18 17:36 Freq: Status: Active Protocol: Document 10/07/18 11:31 [facility] (Rec: 10/07/18 18:00 [facility] [id number]) Cognitive Factors Limiting Selfcare Function Cognitive Ability Level of Alertness Alert Patient Orientation Name Age Birthday Month Date Year Day of Week Place Situation Attention Span Ability Capable of Focused Attention Capable of Sustained Attention Ability to Follow Commands Able to Follow Multi-Step Commands Memory Description No Deficits Noted Safety Awareness Underestimates Need for Assistance Cognitive Comments Cognitive Assessment Comments Pt needing vc to keep FWW close to him especially when trying to step over the threshold of the shower. OT- Vision and Hearing OT- Hearing Assessment OT- Hearing Assessment WFL M7 OT- IP Mobility and Balance Start: 10/07/18 17:36 Freq: Status: Active Protocol: Document 10/07/18 11:31 [facility] (Rec: 10/07/18 18:00 [facility] [id number]) OT-Transfer Assessment Sit to and From Stand Sit to and from Stand Moderate Assistance 1 Person Assistance Transfers Transfer Ability Minimal Assistance Moderate Assistance Technique Transfer Destination Bedside Commode Chair Shower Stall Transfer Technique Stand Step Pivot Devices Transfer Assistive Devices Gait Belt Front Wheeled Walker Comments Mobility Comments Pt having difficulty to bend his right knee, therefore at times needing MODA to stand especially from lower surfaces . In addition pt needing assist for balance to help step over threshold of the shower. Pt at times unsteady as his LLE tires. OT- Balance Assessment Sitting Balance and Reactions Static Sitting Balance Ability Normal Dynamic Sitting Balance Ability Good Standing Balance and Reactions Static Standing Balance Ability Fair M8 OT- IP Objective Assessments Start: 10/07/18 17:36 Freq: Status: Active Protocol: Document 10/07/18 11:31 [facility] (Rec: 10/07/18 18:00 [facility] [id number]) OT Gross Range of Motion Upper Extremity Range of Motion Assessment Left Impaired ROM Impairments LUE shoulder flexion 0-85. OT Strength Comments Strength Comments RUE WFL, LUE shoulder 3-/5 to distal 4/5. OT-Muscle Tone Assessment Muscle Tone WNL Yes M9 OT- IP Assessment and Plan Start: 10/07/18 17:36 Freq: Status: Active Protocol: Document 10/07/18 11:31 [facility] (Rec: 10/07/18 18:00 [facility] [id number]) OT Summary Assessment and Plan Potential Rehabilitation Potential Good Analytic Complexity at Evaluation Low Summary OT Impairments Pain Range of Motion Strength Balance Functional Mobility Grooming Dressing Toileting Bathing Toilet Transfers Shower Transfers Progress Towards Goals Progressing Toward Goals Assessment Summary Pt low complexity and main barrier are steps, decreased functional mobility and self care needs due decreased AROM and strength for RLE, in addition LLE weakness. Pt now needing MOD A to come to stand , needing extensive assist for ADL needs. Pt would benefit from skilled rehab prior to going home. Goals Grooming Goal Standby Assistance Dressing Goal Standby Assistance Long Handled Shoe Horn Geneticist Sock Aid Toileting Goal Standby Assistance Bathing Goal Minimal Assistance Toilet Transfer Goal Standby Assistance Shower Transfer Goal Contact Guard Assistance OT-Other Goals Grooming goal in standing with FWW. Days to Meet Goals 5 Frequency of Treatment Frequency Of Treatment Once a Day Treatment Plan OT Treatment Plan ADL Training Functional Mobility Patient/Family Education Discharge Planning Other Treatment Recommendations and Next Practice lower body dressing Treatment Focus with adaptive equipment. Discharge Recommendations OT Discharge Recommendations SNF Rehab
[2018-10-07] MEDS: TAMSULOSIN 0.4 MG CAPSULE 0.8 MG PO (20:50)
[2018-10-08] MEDS: OXYCODONE IR 10 MG TABLET PO ×3 (02:04→13:00)
[2018-10-08 04:44] VITALS: BP 129/77; PULSE 99; RESP 12; TEMP 36.6; O2SAT 94
[2018-10-08 08:10] VITALS: BP 136/71; PULSE 93; RESP 16; TEMP 37.2; O2SAT 97
[2018-10-08] MEDS: ACETAMINOPHEN 325 MG TABLET 975 MG PO (09:04)
[2018-10-08] MEDS: METFORMIN XR 500 MG TABLET PO ×2 (09:05→13:01)
[2018-10-08] MEDS: CARVEDILOL 3.125 MG TABLET PO (09:05)
[2018-10-08] MEDS: BENAZEPRIL 5 MG TABLET 10 MG PO (09:05)
--- NOTE | 2018-10-08 09:05 | PT.IPTN ---
Current Diagnoses Bilateral primary osteoarthritis of knee (10/05/18) Surgery Performed Operation Date: 10/05/18 07:45 Actual Procedures p Total Knee Arthroplasty(Right) - David Shore MD Physical Therapy Treatment Note M2 PT-IP Current Condition Start: 10/05/18 17:28 Freq: NEEDED Status: Active Protocol: Document 10/05/18 13:40 AB (Rec: 10/05/18 17:43 AB [id number]) Physical Therapy Current Condition Current Condition Evaluation Date 10/05/18 Treatment Diagnosis s/p R TKA; difficulty in walking Onset Date 10/05/18 Weight Bearing Status Weight Bearing Status Weight Bear as Tolerated M3 PT-IP Subjective Start: 10/05/18 17:28 Freq: NEEDED Status: Active Protocol: Document 10/08/18 09:05 AB (Rec: 10/08/18 13:07 AB [id number]) Subjective Physical Therapy Visit Type Type Treatment Note Visit Start Time 09:05 Visit Stop Time 09:27 Total Visit Minutes 22 Number of UNION ORGANIZER Visits 0 Physical Therapy Visit Comments Patient Comments pt sitting on EOB and stated that he thought he might get up and stretch. Therapy Pain Assessment Pain When Pain Assessed During Mobility Pain Present Pain Present Pain Reported Location Rt Knee Scale Used Numeric (1 - 10) Pain Management Techniques Re-positioning Timing of Activity with Medications M4 PT-IP Mobility and Gait Start: 10/05/18 17:28 Freq: NEEDED Status: Active Protocol: Document 10/08/18 09:05 AB (Rec: 10/08/18 13:07 AB [id number]) PT-Transfer Assessment Sit to and From Stand Sit to and from Stand Moderate Assistance Maximum Assistance 1 Person Assistance Use of Upper Extremities Equipment Transfer Assistive Device Gait Belt Front Wheeled Walker Orthotic/Prosthetic Devices or Brace: No Transfers Transfer Destination Toilet Transfer Technique pt ambulated using FWW Transfer Ability Level of Assist Moderate Assistance 1 Person Assistance Use of Upper Extremities Comments Mobility Comments pt requested to use the toilet and ambulated using FWW mod A and cues. required mod to max A and max cues with sit to stand. has (+) L hip crepitus with sit <>stand and pt c/o increas knee pain. Gait Assessment Gait Gait Assistance Required: Moderate Assistance 1 Person Assist Distance (Feet) 50 Assistive Devices Assistive Device Gait Belt Front Wheeled Walker Orthotic/Prosthetic Devices or Brace: No Gait Deviations General Gait Pattern Antalgic Decreased Stride Length Decreased Feet Clearance Step-to Gait Factors Limiting Gait Function Factors Limiting Gait Function Decreased Activity Tolerance Decreased Strength Limited Range of Motion Pain Poor Balance Comments Gait Comments pt completed ambulation 30 ft + 50 ft using FWW mod A and cues. required assist to stabilize R knee and weight shifting. . M5 PT-IP Objective Assessments Start: 10/05/18 17:28 Freq: NEEDED Status: Active Protocol: Document 10/05/18 13:40 AB (Rec: 10/05/18 17:43 AB [id number]) Orientation Orientation/Cognition Level of Alertness Alert Orientation Name Place Situation Language Function Ability No Deficits Noted Safety Awareness Understands Safety Issues Memory Description No Deficits Noted Gross Range of Motion Lower Extremity ROM Assessment Right Impaired Impairments R knee flexion: 70 deg Strength Lower Extremity Strength Assessment Right Impaired Hip 3+/5 Knee 3/5 Coordination Assessment Gross Coordination Gross Coordination WNL Sensation Assessment Sensation Gross Sensation WNL Muscle Tone Muscle Tone WNL Yes M6 PT-IP Treatment Start: 10/05/18 17:28 Freq: NEEDED Status: Active Protocol: Document 10/08/18 09:05 AB (Rec: 10/08/18 13:07 AB [id number]) Physical Therapy Treatment Exercises Exercises Heel Slides Education Education Provided Safety M7 PT-IP Assessment and Plan Start: 10/05/18 17:28 Freq: NEEDED Status: Active Protocol: Document 10/08/18 09:05 AB (Rec: 10/08/18 13:07 AB [id number]) PT Summary Assessment and Plan Potential Rehabilitation Potential Good Summary Impairments Pain ROM Strength Balance Coordination Sensation Tone Cognition Bed Mobility Transfers Gait Activity Tolerance Progress Towards Goals Slow Progress due to Pain Slow Progress due to Activity Tolerance Assessment Summary pt continues to require mod to max A with mobility and has difficulty with ambulation. continues to have decrease activity tolerance due to c/o pain. pt will benefit from SNF rehab to improve strength and function. Goals Bed Mobility Goal Independent Transfer Goal Independent Front Wheeled Walker Gait Goal Independent Front Wheel Walker Gait Distance 200 Other Goals up/down 3 steps with L rail ascending Days to Meet Goals 5 Frequency of Treatment Frequency Of Treatment Twice a Day Treatment Plan Physical Therapy Treatment Plan Bed Mobility Training Transfer Training Gait Training Therapeutic Exercise Balance Retraining Post Op Education Discharge Planning Hot or Cold Pack Neuromuscular Re-ed Coordination Retraining Manual Therapy Other Recommendations and Next Treatment ROM ex Focus amb, stair climbing, CG training Recommendations To Nursing Amount of Assist Needed 1 Person Assist Discharge Recommendations PT Discharge Recommendations SNF Rehab
[2018-10-08] MEDS: CHLORTHALIDONE 25 MG TABLET PO (09:06)
[2018-10-08] MEDS: SODIUM CHLORIDE 0.9% FLUSH 10 ML IV (09:09)
--- NOTE | 2018-10-08 10:12 | P.DS_ITS ---
History of Present Illness Date Patient Seen: 10/08/18 Time Patient Seen: 10:11 Chief complaint: [id number] Narrative: Please see HPI recorded elsewhere in the chart. Discharge Providers Date of admission: 10/05/18 06:16 Discharge Date: 10/08/18 Primary care physician: Chava Rodriguez MD Consults: 10/05/18 10:56 Consult to Discharge Planning Routine Comment: Consult to Physical Therapy Evaluate & Treat Comment: Physician Instructions: postop TKA protocol Consult to Respiratory Therapy Evaluate & Treat Comment: Physician Instructions: Evaluate and treat 10/06/18 15:09 Consult to Occupational Therapy Evaluate & Treat Comment: PT is recommending as pt may need snf Physician Instructions: Evaluate and treat Discharge provider: Alida Marcus PA-C Summary Discharge Diagnosis: s/p right total knee arthroplasty Hospital Course: 73 year old male with PMH of CHF, Afib, BPH, DMII with long standing right knee osteoarthritis presented for total knee arthroplasty after failure of conservative treatment. The nature of the procedure including the risks and benefits, alternatives, postoperative course and expected outcome were discussed and all questions answered. Operative site was confirmed and marked. After obtaining informed consent patient was taken to the operating room and u nderwent a right total knee arthroplasty with Dr. Shore which he tolerated well with no complications. He has worked with PT and OT but has been progressing slowly with his mobility post operatively. His pain is well controlled with Oxycodone. He is voiding and tolerating a diet. He has restarted Eliquis which will be his DVT prophylaxis. He requires further rehab prior to discharge to home and is mediaclly stable for discharge to [facility] today. Status at Discharge Cognitive/behavioral status at discharge: oriented Functional status at discharge: uses cane/walker Overall status at discharge: patient is progressing back to baseline Exam Vital Signs (past 8 hours): - 10/08/18 04:44 10/08/18 08:10 Temperature 97.8 F 98.9 F Pulse Rate 99 H 93 H Respiratory Rate 12 16 Blood Pressure 129/77 136/71 Pulse Oximetry 94 97 Fraction of Inspired Oxygen 21 Oxygen Delivery Method Room Air,CPAP Oxygen Flow Rate 0 Narrative Exam Narrative: Pleasant 73 year old male resting comfortably in bed. Alert and oriented in no acute distress. Dressing in place is CDI with small area of shadow drainage at top of dressing that has been demarcated. Able to flex/extend at the ankle and toes. SILT. Calves soft, compressible. Objective Labs Result Diagrams: 10/06/18 06:45 Discharge Plan Discharge Plan Patient Disposition: SNF Transfer to: [facility] Consult as needed: Dental, Hearing, Mental health, Podiatry and Vision I certify the postop hospital senior living care is medically necessary on a continuing basis for any conditions for which he/ she received care during this hospitalization.: Yes The receiving facility has agreed to accept transfer and provide medical treatment.: Yes Discharge Med Rec/Prescriptions Prescriptions: New oxycodone 10 mg Tablet 10 mg PO Q4HR PRN (Reason: Pain, Severe (7-10)) Qty: 40 RF: 0 Continued benazepril 10 mg Tablet 10 mg PO QAM Qty: 0 RF: 0 metformin [Glucophage XR] 500 MG tablet extended release 24 hr 500 mg PO TID Qty: 0 RF: 0 chlorthalidone 25 mg Tablet 25 mg PO DAILY RF: 0 acetaminophen 500 mg Tablet 1,000 mg PO Q6H PRN (Reason: pain) RF: 0 carvedilol 3.125 mg Tablet 3.125 mg PO BID RF: 0 rosuvastatin 5 mg Tablet 5 mg PO SEEINSTR RF: 0 Eliquis 5 mg Tablet 5 mg PO BID Qty: 0 RF: 0 finasteride 5 mg tablet 5 mg PO DAILY RF: 0 tamsulosin 0.4 mg capsule 0.8 mg PO BEDTIME RF: 0 Respironics Dreamstation CPAP Qty: 1 RF: 0 Follow up/Referrals: David Shore MD [Physician] - Discharge Health Status Brief summary of current health status: 73 year old male with PMH of CHF, Afib, DMII, BPH who is POD#3 s/p Right total knee arthroplasty. Patient is in his usual state of health but slow to mobilize post operatively. Precautions: [place] Provider Discharge Instructions Diet: Diet as Tolerated Liquid consistency: Normal/Thin Food texture: Regular Activity: Weight bear as tolerated. Use FWW for support. Cold/Heat Therapy: Ice packs as needed Skin/Wound/Dressing Care Report to your healthcare provider any signs of infection, such as:: chills, fever, night sweats, increased pain, unusual drainage and unusual redness Dressing: Aquacel dressing in place with small area of drainage marked. Dressing is to remain in place until 2 weeks visit. Call the office if dressing becomes saturated if at home, or if in rehab ok to perform dressing change. [facility] Rehabilitation [facility] Reason for rehabilitation: Post-operative therapy Rehab type: Physical therapy and Occupational therapy Visit Report/Discharge Packet Instructions: DI for Knee Replacement Discharge Data Primary Care Provider: Chava Rodriguez Attending Provider: David Shore Admit Date/Time: 10/05/18 06:16 Quality VTE Deep Vein Thrombosis/Pulmonary Embolism Present on Admission: No
--- NOTE | 2018-10-08 10:20 | CM.DPC ---
DCP Cont: Spoke to RONDA Irwin in ortho, during team meeting. Let her know that patient can go to [facility] today, for this lead case manager had spoken to Fran, who is in admissions for the week-end at [facility]. Vania is in the process of completing orders. PASSR completed, and printed out H&P and discharge summary, pending signed med list and any prescriptions. Let Fran know that as soon as this lead case manager receives all of the orders, will fax them over. Confirmed tack picker time with Nataliya Peters. Patient and spouse aware. Received signed med orders and prescription. Faxed to [facility], along with PASSR, discharge summary and history and physical. Patient signed updated IMM. P: Patient is to be discharged today to [facility], they will pick him up, via wheel-chair. Annie Johnson RN/Sales Incentive Analyst
[2018-10-08] MEDS: APIXABAN 5 MG TABLET PO (11:09)
--- NOTE | 2018-10-08 11:09 | OT.IP.TRT ---
Current Diagnoses Bilateral primary osteoarthritis of knee (10/05/18) Surgery Performed Operation Date: 10/05/18 07:45 Actual Procedures p Total Knee Arthroplasty(Right) - David Shore MD Occupational Therapy Treatment Note M2 OT-IP Current Condition Start: 10/07/18 17:36 Freq: Status: Active Protocol: Document 10/07/18 11:31 [facility] (Rec: 10/07/18 18:00 CCC [email or web address]) Occupational Therapy Current Condition Current Condition Evaluation Date 10/07/18 Treatment Diagnosis Right knee Osteoarthritis, s/p R TKA, weakness Diagnosis Onset Date 10/05/18 Weight Bearing Status Weight Bearing Status Weight Bear as Tolerated M3 OT- IP Subjective and Pain Start: 10/07/18 17:36 Freq: Status: Active Protocol: Document 10/08/18 10:57 CGR (Rec: 10/08/18 11:09 CGR [email or web address]) OT- Subjective Occupational Therapy Visit Type Type Treatment Note Visit Start Time 09:37 Visit Stop Time 10:40 Total Visit Minutes 63 Occupational Therapy Visit Comments Patient/Caregiver Goals states whatever it takes when discussing rehab. OT Pain Assessment Pain When Pain Assessed During Mobility Pain Present Pain Present Pain Reported Location Rt Knee Intensity 3 Scale Used Numeric (1 - 10) M4 OT- IP ADL's Start: 10/07/18 17:36 Freq: Status: Active Protocol: Document 10/08/18 10:57 CGR (Rec: 10/08/18 11:09 CGR [email or web address]) OT [id number] Comments OT Self-Feeding Comments Not meal time. OT ADL-Grooming General Evaluation Grooming Ability Standby Assistance Areas Needing Assistance Face Washing Comments OT Grooming Comments standing at sink OT ADL-Oral Care General Eval Oral Care Ability Standby Assistance Areas of Assistance Brushing Teeth Comments Oral Care Comments standing at sink OT ADL-Dressing General Eval Upper Body Dressing Ability Independent Lower Body Dressing Ability Minimal Assistance Areas Needing Assistance Pull-Over Shirt Underpants/Brief Pants/Shorts Assistive Devices Dressing Assistive Devices Rail Crew Member Comments OT Dressing Comments Educated on use of shelf drier operator and pt doffed dirty pants and underwear and donned clean with the shelf drier operator and min a. IND for UB dressing. OT ADL-Toileting General Evaluation Toileting Ability Contact Guard Assistance Comments OT Toileting Comments Stood at toilet for toileting but was unable to void. OT ADL-Bathing Bathing Type Bathing Type Sponge Bath General Evaluation Bathing Ability Standby Assistance Areas Needing Assistance Wash/Dry Back Comments OT Bathing Comments Pt cleaned arm pits and rocael area with a wet cloth seated in chair. Therapist assisted with back after c/o itchy back with sweating. M5 OT- IP IADL's Start: 10/07/18 17:36 Freq: Status: Active Protocol: Document 10/07/18 11:31 [facility] (Rec: 10/07/18 18:00 [facility] [email or web address]) OT-Instrumental Activities of Daily Living Home Safety Awareness Ability to Problem Solve Emergency Able to Problem Solve Situations Meal Preparation Meal Preparation Comments Pt's can assist. Strategic Development Manager Strategic Development Manager Comments Pt's can assist. M6 OT- IP Functional Cognition Start: 10/07/18 17:36 Freq: Status: Active Protocol: Document 10/07/18 11:31 [facility] (Rec: 10/07/18 18:00 [facility] [email or web address]) Cognitive Factors Limiting Selfcare Function Cognitive Ability Level of Alertness Alert Patient Orientation Name Age Birthday Month Date Year Day of Week Place Situation Attention Span Ability Capable of Focused Attention Capable of Sustained Attention Ability to Follow Commands Able to Follow Multi-Step Commands Memory Description No Deficits Noted Safety Awareness Underestimates Need for Assistance Cognitive Comments Cognitive Assessment Comments Pt needing vc to keep FWW close to him especailly when trying to step over the threshold of the shower. OT- Vision and Hearing OT- Hearing Assessment OT- Hearing Assessment WFL M7 OT- IP Mobility and Balance Start: 10/07/18 17:36 Freq: Status: Active Protocol: Document 10/08/18 10:57 CGR (Rec: 10/08/18 11:09 CGR [email or web address]) OT-Transfer Assessment Sit to and From Stand Sit to and from Stand Moderate Assistance Transfers Transfer Ability Minimal Assistance Technique Transfer Destination Chair Transfer Technique Stand Step Pivot Devices Transfer Assistive Devices Gait Belt Front Wheeled Walker Comments Mobility Comments Pt used arms to push from arm rails of chair into standing with mod a. Pt is slow with his mobility around the room. OT- Gait Assessment Gait Gait Assistance Required: Contact Guard Assist Able to Maintain Weight Bearing Status Yes During Gait Assistive Devices Assistive Device Gait Belt Front Wheeled Walker Comments Gait Ability Comments Pt able to walk up to sink and into bathroom and maintain standing using walker for attempted urination at [facility]. Ambulated back to chair at end of session. OT- Balance Assessment Sitting Balance and Reactions Static Sitting Balance Ability Normal Dynamic Sitting Balance Ability Good M8 OT- IP Objective Assessments Start: 10/07/18 17:36 Freq: Status: Active Protocol: Document 10/07/18 11:31 CCC (Rec: 10/07/18 18:00 CCC [email or web address]) OT Gross Range of Motion Upper Extremity Range of Motion Assessment Left Impaired ROM Impairments LUE shoulder flexion 0-85. OT Strength Comments Strength Comments RUE WFL, LUE shoulder 3-/5 to distal 4/5. OT-Muscle Tone Assessment Muscle Tone WNL Yes M9 OT- IP Assessment and Plan Start: 10/07/18 17:36 Freq: Status: Active Protocol: Document 10/08/18 10:57 CGR (Rec: 10/08/18 11:09 CGR [email or web address]) OT Summary Assessment and Plan Potential Rehabilitation Potential Good Analytic Complexity at Evaluation Low Summary OT Impairments Pain Range of Motion Strength Balance Functional Mobility Grooming Dressing Toileting Bathing Toilet Transfers Shower Transfers Progress Towards Goals Progressing Toward Goals Assessment Summary Pt is progressing with therapy but currently needs significant assist for sit to stand even from chair with 2 arm rails. Pt will benefit from continued therapy services and will likely need SNF. Goals Grooming Goal Standby Assistance Dressing Goal Standby Assistance Long Handled Shoe [place] Rail Crew Member Sock Aid Toileting Goal Standby Assistance Bathing Goal Minimal Assistance Toilet Transfer Goal Standby Assistance Shower Transfer Goal Contact Guard Assistance OT-Other Goals Grooming goal in standing with FWW. Days to Meet Goals 4 Frequency of Treatment Frequency Of Treatment Once a Day Treatment Plan OT Treatment Plan ADL Training Functional Mobility Patient/Family Education Discharge Planning Other Treatment Recommendations and Next Practice lower body dressing Treatment Focus with adaptive equipment. Discharge Recommendations OT Discharge Recommendations SNF Rehab Home Equipment Needs TBD
[2018-10-08 11:15] VITALS: BP 96/56; PULSE 94; RESP 20; TEMP 36.6; O2SAT 95
--- NOTE | 2018-10-08 15:49 | PC.NURSE ---
Transfer: Pt and spouse feel ready to transfer to snf today. Pt is voiding and eating w/out diff. Po pain meds effective. Has been seen by PT. They received final instructions from them. Report called to Gisel, admitting nurse at facility. Reviewed hospital course. Questions answered. Transfered to facility via there vehicle.
== END 2018-10-08 13:20 | DRG 470 ==
PROVIDERS: Admitting Provider Orthopaedic Surgery; Family Provider Student in an Organized Health Care Education/Training Program; PCP Student in an Organized Health Care Education/Training Program; Visit Provider Orthopaedic Surgery
PROC: 0SRC0JZ Replacement of Right Knee Joint with Synthetic Substitute, Open Approach (ICD-10-PCS; CPT 27447; principal; 2018-10-05 07:45)
DX: M17.11 Unilateral primary osteoarthritis, right knee (principal); I48.91 Unspecified atrial fibrillation; Z79.01 Long term (current) use of anticoagulants; I10 Essential (primary) hypertension; E11.9 Type 2 diabetes mellitus without complications; I25.10 Atherosclerotic heart disease of native coronary artery without angina pectoris; Z79.4 Long term (current) use of insulin; G47.33 Obstructive sleep apnea (adult) (pediatric)
CPT/HCPCS: 36415; 64447; 73560; 82962; 85014; 85018; 94762; 97110; 97116; 97161; 97165; 97530; 97535; C1776; C9290; J0690; J1170; J2250; J2704; J3010

== ENCOUNTER → 2021-04-24 12:10 | Outpatient (CLI) | payer MEDICARE, SELFPAY ==
[2021-03-18 12:18] VITALS: BMI 32.8
[2021-04-24 15:59] LABS: Appearance Urine UA CLEAR; Bilirubin Urine UA NEGATIVE (NEGATIVE); Color Urine UA YELLOW; Glucose Urine UA NEGATIVE (Negative); Ketones Urine UA NEGATIVE (NEGATIVE); Leukocyte Esterase Urine UA NEGATIVE (NEGATIVE); Nitrite Urine UA NEGATIVE (Negative); Occult Blood Urine UA 2+ (Negative); Protein Urine UA 2+ (Negative); Urobilinogen Urine UA 0.2 E.U./dL (0.2); pH Urine UA 6.5 (4.5-8.0)
[2021-04-24 16:10] LABS: Amorphous Sediment Urine 1+; Bacteria Urine Few (2-10); Mucus Urine 1+ (Negative); RBC Urine 1-5/HPF (0-5/HPF); Squamous Epithelial Cell Urine 1-5 /HPF (0-5/HPF); WBC Urine 10-30/HPF (0-5/HPF)
== END ==
PROVIDERS: Family Provider Student in an Organized Health Care Education/Training Program; PCP Student in an Organized Health Care Education/Training Program; Visit Provider Specialist
DX: R31.0 Gross hematuria (principal); R30.0 Dysuria
CPT/HCPCS: 81001; 87086

== ENCOUNTER → 2021-04-24 12:33 | Outpatient (CLI) | payer MEDICARE, SELFPAY ==
[2021-03-18 12:18] VITALS: BMI 32.8
--- NOTE | 2021-04-24 12:36 | DI.MRI.S_ITS ---
PROCEDURE: MR ABDOMEN WO/W CON INDICATIONS: nephrolithiasis TECHNIQUE: Coronal HASTE through abdomen and pelvis; axial 2D FLASH in- and [id number] (with and without fat saturation), and breath-hold T2 FSE from the hepatic dome to the bottom of the kidneys. Coronal HASTE MR urogram of kidneys and bladder. Dynamic coronal VIBE during IV gadolinium administration; postgadolinium axial VIBE or 2D FLASH with fat saturation from the hepatic dome through the kidneys. COMPARISON: Outside Facility, RG, CT ABDOMEN/PELVIS W/WO CONTRAST, 03/28/2021, 11:04. FINDINGS: Image quality: Excellent. Genitourinary system: The kidneys are symmetric in size. No hydronephrosis. A 12 mm focus of susceptibility artifact is seen in the inferior pole of the right kidney, consistent with the known nonobstructing calculus in this location. Additional bilateral nonobstructing calculi are not well visualized with MRI. There is suboptimal opacification of the ureters on delayed images. No definite filling defect is seen within the renal collecting system to correspond with the previously reported possible filling defect at the superior pole of the left kidney. No enhancing renal mass is seen. A few subcentimeter T2-hyperintense cysts are noted. Other solid organs: Liver is normal in size. Status post cholecystectomy. Common bile duct measures up to 18 mm in diameter and there is mild prominence of the central intrahepatic biliary ducts, which is less specific in the setting of prior cholecystectomy. No filling defect is seen within the biliary ducts. The main pancreatic duct is mildly diffusely dilated to 5 mm to the level of the ampulla. No obstructing mass is seen. Spleen is normal in size. No adrenal nodule. Nodes and vessels: Infrarenal abdominal aortic aneurysm is again seen measuring up to 3.8 cm in diameter on coronal images. Bowel and peritoneum: Multiple diverticula are seen in the included portions of the colon. No signs of bowel obstruction. Lung bases: Unremarkable. Bones and soft tissues: No enhancing osseous lesion. Degenerative changes are seen in the spine. IMPRESSION: 1. Susceptibility artifact is seen related to a nonobstructing calculus in the inferior pole of the right kidney. Additional smaller bilateral nonobstructing renal calculi seen on prior CT are not well visualized with MRI. 2. No enhancing mass is seen in the region of the previously suspected filling defect in a left upper pole calyx. Recommend follow-up CT urogram/CT intravenous pyelogram to evaluate for stability. 3. Dilated common bile duct and central intrahepatic biliary ducts to the level of the ampulla of Vater is likely related to prior cholecystectomy. However, the main pancreatic duct is also prominent. No obstructing mass is seen. Findings are nonspecific but could be related to an ampullary stricture. 4. Colonic diverticulosis. 5. Infrarenal abdominal aortic aneurysm. Dictated by: Christopher Esqueda M.D. on 04/24/2021 at 16:21 Approved by: Christopher Esqueda M.D. on 04/24/2021 at 16:36
== END ==
PROVIDERS: Family Provider Student in an Organized Health Care Education/Training Program; PCP Student in an Organized Health Care Education/Training Program; Referring Provider Specialist; Visit Provider Specialist
DX: C61 Malignant neoplasm of prostate (principal); N20.0 Calculus of kidney; R31.0 Gross hematuria; I71.4 Abdominal aortic aneurysm, without rupture; K83.8 Other specified diseases of biliary tract; K57.90 Diverticulosis of intestine, part unspecified, without perforation or abscess without bleeding; R30.0 Dysuria; R39.9 Unspecified symptoms and signs involving the genitourinary system
CPT/HCPCS: 51798; 74183; 81001; 81002; 87077; 87086; 99215; A9579

== ENCOUNTER → 2021-05-01 12:02 | Outpatient (CLI) | payer MEDICARE, SELFPAY ==
[2021-03-18 12:18] VITALS: BMI 32.8
--- NOTE | 2021-05-01 12:04 | DI.RAD.S_ITS ---
PROCEDURE: XR KUB INDICATIONS: bilateral nephrolithiasis TECHNIQUE: One view of the abdomen acquired. COMPARISON: None. FINDINGS: Surgical changes and devices: None. Bowel: Increased stool is seen throughout the abdomen. No air-fluid levels, free air, or pneumatosis. Soft tissues: 2 stones in the right kidney in the superior pole and inferior pole are seen measuring 7 x 3 mm and 5 x 3 mm respectively. These appear nonobstructing. No stones along the courses of the ureters.. Visualized solid organ contours appear normal in size. Bones: No suspicious bony lesions. Rightward curvature of the lumbar spine. Degenerative changes of the lumbar spine. IMPRESSION: 1. Nonobstructing stones in the right kidney. 2. No other nephroureterolithiasis. Dictated by: Bill Mays M.D. on 05/01/2021 at 16:23 Approved by: Bill Mays M.D. on 05/01/2021 at 16:24
[2021-05-01 13:38] LABS: Appearance Urine UA CLEAR; Bilirubin Urine UA NEGATIVE (NEGATIVE); Color Urine UA YELLOW; Glucose Urine UA NEGATIVE (Negative); Ketones Urine UA NEGATIVE (NEGATIVE); Leukocyte Esterase Urine UA NEGATIVE (NEGATIVE); Nitrite Urine UA NEGATIVE (Negative); Occult Blood Urine UA TRACE-INTACT (Negative); Protein Urine UA TRACE (Negative); Specific Gravity Urine UA 1.015 (1.000-1.035); Urobilinogen Urine UA 0.2 E.U./dL (0.2); pH Urine UA 6.5 (4.5-8.0)
[2021-05-01 13:55] LABS: Bacteria Urine None Seen; Culture Indicated Urine Cult Not Indicated; RBC Urine 0-1/HPF (0-5/HPF); Squamous Epithelial Cell Urine 0-1 /HPF (0-5/HPF); WBC Urine 0-1/HPF (0-5/HPF)
[2021-05-01 14:01] LABS: BUN Creatinine Ratio 32.4 (6-22); Blood Urea Nitrogen 22 mg/dL (9-20); Calcium 10.1 mg/dL (8.4-10.2); Carbon Dioxide 29 mmol/L (22-32); Chloride 102 mmol/L (98-107); Estimated Glomerular Filt Rate > 60.0 mL/min (>60); Glucose 131 mg/dL (80-110); HEMOLYSIS < 15 (0-50); Potassium 4.1 mmol/L (3.4-5.1); Sodium 139 mmol/L (137-145)
[2021-05-01 14:33] LABS: Prostate Specific Antigen 3.72 ng/mL (0.10-4.00)
== END ==
PROVIDERS: Family Provider Student in an Organized Health Care Education/Training Program; PCP Student in an Organized Health Care Education/Training Program; Referring Provider Specialist; Visit Provider Specialist
DX: N20.0 Calculus of kidney (principal); R31.0 Gross hematuria; R97.20 Elevated prostate specific antigen [PSA]
CPT/HCPCS: 36415; 74018; 80048; 81001; 84153

== ENCOUNTER → 2023-07-27 11:36 | Outpatient (CLI) | payer MEDICARE, SELFPAY ==
[2022-01-26 13:42] VITALS: BMI 32.8
--- NOTE | 2023-07-27 11:38 | DI.RAD.S_ITS ---
PROCEDURE: XR KUB INDICATIONS: Nephrolithiasis TECHNIQUE: One view of the abdomen acquired. COMPARISON: Outside Facility, RG, CTA CHEST ABDOMEN PELVIS W / CONTRAST, 01/07/2023, 13:23. [facility], CR, XR KUB, 05/01/2021, 12:45. FINDINGS: Surgical changes and devices: Cholecystectomy. Bowel: Bowel gas pattern is normal. There is a large amount of stool in colon. Soft tissues: There is a 5 x 8 mm calcific density projecting to the area of the inferior pole of the right kidney suspicious for renal stone. Visualized solid organ contours appear normal in size. Bones: No suspicious bony lesions. Scoliosis and degenerative changes in lumbar spine. IMPRESSION: A 5 x 8 mm stone in the inferior pole of the right kidney. Dictated by: Megha Koch M.D. on 07/27/2023 at 13:12 Approved by: Megha Koch M.D. on 07/27/2023 at 13:14
[2023-07-27 14:23] LABS: Prostate Specific Antigen 2.41 ng/mL (0.10-4.00)
== END ==
PROVIDERS: Family Provider Student in an Organized Health Care Education/Training Program; PCP Student in an Organized Health Care Education/Training Program; Referring Provider Specialist; Visit Provider Specialist
DX: R97.20 Elevated prostate specific antigen [PSA] (principal); N20.0 Calculus of kidney
CPT/HCPCS: 36415; 74018; 84153

== ENCOUNTER → 2024-01-25 14:18 | Outpatient (CLI) | payer MEDICARE, SELFPAY ==
[2022-01-26 13:42] VITALS: BMI 32.8
[2024-01-25 16:29] LABS: Prostate Specific Antigen 3.11 ng/mL (0.10-4.00)
== END ==
PROVIDERS: Family Provider Student in an Organized Health Care Education/Training Program; PCP Student in an Organized Health Care Education/Training Program; Referring Provider Urology; Visit Provider Urology
DX: R97.20 Elevated prostate specific antigen [PSA] (principal); N40.1 Benign prostatic hyperplasia with lower urinary tract symptoms; N13.8 Other obstructive and reflux uropathy; R31.0 Gross hematuria
CPT/HCPCS: 84153

== ENCOUNTER → 2024-03-02 12:51 | Outpatient (CLI) | payer MEDICARE, SELFPAY ==
[2022-01-26 13:42] VITALS: BMI 32.8
--- NOTE | 2024-03-02 13:09 | DI.MRI.S_ITS ---
PROCEDURE: MR PELIS WO/W CON INDICATIONS: 78 y/o M w/ prostate cancer, please eval. TECHNIQUE: Coronal HASTE, axial T1 FSE with fat saturation, 3-plane nonbreath-hold T2 FSE. After the administration of contrast, dynamic axial, delayed axial and coronal VIBE or 2-D FLASH with fat saturation through the pelvis. Diffusion weighted imaging and ADC was performed. COMPARISON: Outside Facility, RG, CTA CHEST ABDOMEN PELVIS W / CONTRAST, 01/07/2023, 13:23. FINDINGS: Image quality: Diffusion weighted and dynamic contrast enhanced images are diagnostic. Prostate: Gland size is 4.6 x 4.4 x 3.4 cm; ellipsoid gland volume is 36 mL. Numerous BPH nodules. No significant intrinsic T1 hyperintense foci to suggest hemorrhage. Lesion 1: Location: Right apex peripheral zone. Size: 1.9 x 1.6 cm, (06/07). T2W signal: Hypointense. DWI signal: Markedly hyperintense. ADC signal: Markedly hypointense. Enhancement: Yes. Extracapsular extension: No. No neurovascular involvement. PI-RADS score: 5 Lesion 2: Location: Left mid gland peripheral zone. Size: 1 x 0.8 cm, (06/04). T2W signal: Hypointense. DWI signal: Heterogeneous ADC signal: Heterogeneous Enhancement: Yes. Extracapsular extension: No. No neurovascular involvement. PI-RADS score: 3 Genitourinary system: Bladder wall thickness is normal. Distal ureters are non distended. Bowel and peritoneum: No pathologic free pelvic fluid. Inferior colon and small bowel loops are normal in caliber. Nodes and vessels: No pelvic or inguinal adenopathy by size criteria. Abdominal aortic aneurysm measuring 4.4 cm, similar. Soft tissues: Small fat containing left inguinal hernia. Bones: Marrow demonstrates normal overall signal, without lesions to suggest metastases. IMPRESSION: 1. Prominent prostate gland. Multiple BPH nodules. 2. Right apex peripheral zone observation measuring 1.9 cm. PI-RADS 5. 3. No enlarged lymph nodes. 4. Abdominal aortic aneurysm measuring approximately 4.4 cm. Similar. Dictated by: Mike Carbone M.D. on 03/03/2024 at 9:33 Approved by: Mike Carbone M.D. on 03/03/2024 at 9:51
== END ==
PROVIDERS: Family Provider Student in an Organized Health Care Education/Training Program; PCP Student in an Organized Health Care Education/Training Program; Referring Provider Urology; Visit Provider Urology
DX: C61 Malignant neoplasm of prostate (principal); N40.2 Nodular prostate without lower urinary tract symptoms; I71.40 Abdominal aortic aneurysm, without rupture, unspecified; K40.90 Unilateral inguinal hernia, without obstruction or gangrene, not specified as recurrent
CPT/HCPCS: 72197; A9579